=== PATIENT | male | born 1935 | race Caucasian/White ===

== ENCOUNTER 2017-08-15 18:01 | Inpatient (IN) | payer BC ==
[~2017-08-15] VITALS: Ht 185.4 cm; Wt 89.4 kg
[2017-08-15 21:00] VITALS: BP 139/76; PULSE 75; TEMP 36.8; O2SAT 92; Ht 185.4 cm; Wt 89.4 kg
[2017-08-15] MEDS ORDERED: ONDANSETRON INJ 2 MG/ML 2 ML VIAL IV PRN ×2 (21:15→23:30)
[2017-08-15] MEDS ORDERED: MoRPHine SULFATE 2 MG/ML CARP IV PRN (21:15)
[2017-08-15] MEDS ORDERED: POLYETHYLENE (MIRALAX) 17 GM PACK PO PRN ×2 (21:15→23:30)
[2017-08-15] MEDS ORDERED: IBUP-1050 PO (21:19)
[2017-08-15] MEDS ORDERED: GLUCTAB18 PO (21:21)
[2017-08-15] MEDS ORDERED: FERR50TA3 PO (21:22)
[2017-08-15] MEDS ORDERED: CHOL1TAB42 PO (21:23)
[2017-08-15] MEDS ORDERED: PATIENT'S ALLERGY INFO NEEDS ENTERED SCH (21:45)
--- NOTE | 2017-08-15 22:39 | History and Physical ---
History & Physical Date & Time of Service: Aug 15, 2017 at 22:23 Chief Complaint: Acute Renal Failure, Metabolic Acidosis Primary Care Physician: Edward Sheppard M.D. History of Present Illness Source: patient 82 year old male with arthritis and h/o of GI bleed from diverticulosis in 2016 transferred from [facility] where he presented c/o weakness and body aches different from his usual arthritis pain today and found to have significant JEFFREY. He states that he has been feeling unwell since Thursday, and on Thursday, he found himself on the ground (unsure how it happened) at home at 5:30am and was unable to get up without the assistance of his son who found him at 10am. He denies headaches, palpitations, heart racing or dizziness, then or now. Since then, he has been staying with his significant other, who noticed his weakness was worsening and took him to the ED this morning.Patient denies fevers or chills, but states he has been diaphoretic since yesterday. He denies CP, dyspnea, or URTI symptoms. No complaints of nausea, vomiting or abdominal pain, but states significantly diminished appetite, although he has been drinking water. He denies urinary symptoms - although suspicion of BPH given his stream is good when he really has to go and initially. Denies urgency/frequency/ nocturia/hematuria. States he has been peeing in small amounts for a long time. As per nursing staff, Nieto insertion was difficult, which furthers this suspicion. Patient usually has BM daily, but has not in the last 3 days. He otherwise denies lower extremity swelling or rashes. And up until Thursday, he was tolerating diet without nausea or vomiting, ambulating without issues, and voiding and stooling appropriately. ROS unremarkable except as noted above. Past Medical/Surgical History Arthritis Diverticulosis with h/o GI bleed in 2017 B12 deficiency Family History Dad had RCC with kidney failure, was on dialysis until he refused further treatment Social History Smoking Status: Never Smoker Smokeless Tobacco Use: chews tobacco inconsistently Alcohol Use: occasionally Drug Use: none Marital Status: in relationship Housing status: lives alone Multi-Drug Resistant Organisms History of MDRO: No Allergies Coded Allergies: No Known Allergies (Unverified , 08/15/17) Home Medications Scheduled Cholecalciferol (Vitamin D), PO DAILY Ferrous Sulfate (Iron (Ferrous Sulfate)), PO DAILY Glucosamine-Chondroitin (Osteo Bi-Flex Regular Str), PO DAILY Scheduled PRN Ibuprofen (Advil), 200 MG PO for Pain Physical Exam General Appearance: WD/WN, no apparent distress Head: normocephalic, atraumatic Eyes: normal inspection, PERRL, EOMI, sclerae normal ENT: TMs normal, pharynx normal, + pertinent finding (mucous membranes dry) Neck: supple, no adenopathy, no JVD Respiratory/Chest: lungs clear, normal breath sounds, no respiratory distress, no accessory muscle use Cardiovascular: regular rate, rhythm, no edema, no murmur, normal peripheral pulses Abdomen/GI: normal bowel sounds, non tender, soft Genitourinary - Male: normal male genitalia Back: normal inspection, no CVA tenderness Extremities/Musculoskelatal: normal inspection, no calf tenderness, normal capillary refill, no pedal edema 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 no acute osseus injury Labs: CBC WNL, BMP ok except BUN 103, Cr 7.8; LFT ok except AST 179, ALT 83, lactate 2.0, MG 3.5, trop neg, flu neg,, EKG Normal sinus rhythm, 65bpm Left axis deviation Possible anterior infarct, age undetermined QTc 413 Impression Assessment and Plan 82 year old male with arthritis and h/o of GI bleed from diverticulosis transferred from [facility] where he presented c/o weakness and body aches and found to have significant JEFFREY. JEFFREY - possibly pre-renal and/or post renal - Nieto inserted - IVF NSS @ 150cc/hr - Zofran PRN nausea - Morphine PRN pain - Nephrology consulted - NPO after midnight for possible procedure for access for dialysis - Random urine Na and Cr ordered - Kidney U/S ordered - Trend BMP Previous Fall - EKG shows no arrhythmia - ECHO ordered - PT/OT eval Deranged LFTs - patient denies "excessive drinking" - Hep panel - Trend LFTs Constipation - Bowel regimen: scheduled Colace and Senna, Miralax Arthritis - Ibuprofen PRN B12 def - monthly injections, already H/o GI bleed from diverticulosis - Trend CBC VTE PPx - SCDs - Chemical anticoagulation held for possible procedure tomorrow FULL CODE Resident Physician Supervision Note: Pt evaluated independently. I discussed the case with the resident and agree with the findings and plan as documented in the note. Any exceptions or clarifications are listed here: 82 y/o M likely Hx of BPH, GI bleed - presented to [facility] following a fall - c/o a flu-like illness and weakness preceding the fall - ARF diagnosed on labs with a creatinine of 7.0 - pt could not verify previous Hx of CKD, however, considering his K was WNL, there is likely a chronic element. Pt apparently has an aversion to regular MD visits. OE AAO x 3 S1,2 R CTAB NT, ND No CCE P: Aggressive IVF, urine lytes, trend BMP, Nephrology consult requested Pts girlfriend is present on admission and states that he has a "hardened prostate" - this may translate into BPH - a Nieto has been placed and a renal US is pending to evaluate for hydronephrosis - urology should be contacted if confirmed - placed on Flomax Documented By: Vijay Rodriguez Level of Care Telemetry Resuscitation Status FULL RESUSCITATION VTE Prophylaxis VTE Risk Assessment Done? Y/N: Yes Risk Level: Moderate Given or contraindicated: SCD's Resident Tracking Resident Involvement: Resident Care Provided Care Provided: Adult Hospital Medicine
[2017-08-15] MEDS: SODIUM CHLORIDE 0.9% 1000ML 1,000 ML IV SCH (22:40)
[2017-08-15 23:15] VITALS: BP 134/69; PULSE 65; TEMP 37; O2SAT 94
[2017-08-15] MEDS ORDERED: DOCUSATE SODIUM 100 MG CAP PO ONE (23:27)
[2017-08-15] MEDS ORDERED: SENNA 8.6 MG TAB PO ONE (23:27)
[2017-08-15] MEDS ORDERED: ACETAMINOPHEN 325 MG TAB PO PRN (23:30)
[2017-08-15] MEDS ORDERED: MAGNESIUM HYDROXIDE SUSP 30 ML UDC PO PRN (23:30)
[2017-08-15] MEDS ORDERED: ALUMINUM/MAGNESIUM/SIMETH (MAALOX MAX) 30 ML UDC PO PRN (23:30)
[2017-08-15] MEDS ORDERED: NITROGLYCERIN 0.4 MG SL PER TAB CHARGE SL PRN (23:30)
[2017-08-15] MEDS ORDERED: POLYETHYLENE (MIRALAX) 17 GM PACK PO ONE (23:30)
[2017-08-16 00:28] LABS: BASO % 0.1 %; BASO ABS # 0.01 K/uL (0-0.2); HEMATOCRIT 32.9 % (42-52); HEMOGLOBIN 11.5 g/dL (14.0-18.0); IG# 0.04 K/uL (0.00-0.02); LYMPH % 4.5 %; LYMPH ABS # 0.38 K/uL (1.2-3.4); MEAN CELL VOLUME 85.2 fL (80-100); MEAN CORPUSCULAR HEMOGLOBIN 29.8 pg (25-34); MEAN PLATELET VOLUME 9.4 fL (7.4-10.4); MONO % 5.9 %; NEUT ABS # 7.48 K/uL (1.4-6.5); PLATELET COUNT 210 K/uL (130-400); RED CELL DISTRIBUTION WIDTH CV 14.6 % (11.5-14.5); RED CELL DISTRIBUTION WIDTH SD 45.7 fL (36.4-46.3); WHITE BLOOD COUNT 8.41 K/uL (4.8-10.8)
[2017-08-16 00:39] LABS: PTT PATIENT 32.9 SECONDS (21.0-31.0)
[2017-08-16 01:06] LABS: ALBUMIN 2.5 gm/dl (3.4-5.0); CALCIUM 7.3 mg/dl (8.5-10.1); CREATININE 6.99 mg/dl (0.60-1.40); PHOSPHORUS 5.9 mg/dl (2.5-4.9); POTASSIUM 4.3 mmol/L (3.5-5.1); TOTAL PROTEIN 6.2 gm/dl (6.4-8.2)
[2017-08-16 03:47] VITALS: BP 131/72; PULSE 65; TEMP 37; O2SAT 90
[2017-08-16 05:11] LABS: CREATININE RANDOM URINE 80.1 mg/dl
[2017-08-16] MEDS: SODIUM CHLORIDE 0.9% 1000ML 1,000 ML IV SCH (06:51)
[2017-08-16 07:48] VITALS: BP 157/74; PULSE 68; TEMP 36.5; O2SAT 97
[2017-08-16] MEDS: DOCUSATE SODIUM 100 MG CAP PO SCH ×2 (08:00→20:07)
[2017-08-16] MEDS: SENNA 8.6 MG TAB PO SCH (08:00)
--- NOTE | 2017-08-16 08:25 | DIAGNOSTIC IMAGING REPORT ---
(RENAL)RETROPERITON COMP HISTORY: 82 years-old Male JEFFREY acute kidney injury COMPARISON: None available TECHNIQUE: Multiple real-time sonographic images of the kidneys and urinary bladder were obtained assessing grayscale appearance and color flow FINDINGS: The right kidney measures 13.2 x 7.0 x 7.2 cm with a volume of 352 mL. There is an ovoid hypoechoic lesion which is partially exophytic within the lower pole left kidney measuring 4.8 x 4.3 x 4.2 cm suggesting benign cyst without internal vascularity identified. No right-sided renal calculi, hydronephrosis or focal mass lesions identified. Cortical medullary differentiation is preserved. The left kidney measures 13.0 x 6.8 x 5.5 cm with a volume of 256 mL. No left-sided renal calculi, hydronephrosis or focal renal mass lesions. Cortical medullary differentiation is preserved. Urinary bladder is collapsed with Nieto catheter in place. IMPRESSION: 1. 4.8 cm exophytic cyst involves the inferior pole left kidney. Bilateral kidneys are otherwise unremarkable without hydronephrosis or renal calculi. 2. Decompressed urinary bladder with Nieto catheter in place. The above report was generated using voice recognition software. It may contain grammatical, syntax or spelling errors. Electronically signed by: Himanshu Olsen M.D. 08/16/2017 8:23 AM Dictated Date/Time: 08/16/2017 8:20 AM
[2017-08-16 08:33] LABS: BASO % 0.2 %; BASO ABS # 0.02 K/uL (0-0.2); EOS % 0.5 %; EOS ABS # 0.04 K/uL (0-0.5); HEMATOCRIT 32.8 % (42-52); HEMOGLOBIN 11.6 g/dL (14.0-18.0); IG# 0.04 K/uL (0.00-0.02); LYMPH % 6.1 %; LYMPH ABS # 0.51 K/uL (1.2-3.4); MEAN CELL VOLUME 85.6 fL (80-100); MEAN CORPUSCULAR HEMOGLOBIN 30.3 pg (25-34); MEAN CORPUSCULAR HGB CONC 35.4 g/dl (32-36); MEAN PLATELET VOLUME 9.3 fL (7.4-10.4); MONO % 7.6 %; MONO ABS # 0.64 K/uL (0.11-0.59); NEUT % 85.1 %; NEUT ABS # 7.15 K/uL (1.4-6.5); PLATELET COUNT 211 K/uL (130-400); RED CELL DISTRIBUTION WIDTH CV 14.8 % (11.5-14.5); RED CELL DISTRIBUTION WIDTH SD 46.6 fL (36.4-46.3)
[2017-08-16 09:01] LABS: CALCIUM 7.6 mg/dl (8.5-10.1); CREATININE 6.59 mg/dl (0.60-1.40); POTASSIUM 4.5 mmol/L (3.5-5.1)
[2017-08-16 09:40] LABS: HEP C IGG 13 YRS+OLDER_RFLX NEG (NEG)
--- NOTE | 2017-08-16 10:37 | Family Medicine Progress Note ---
Progress Note Date of Service Aug 16, 2017. Subjective Pt evaluation today including: conversation w/ patient, physical exam, chart review, lab review, review of studies Pain: No pain reported this morning Voiding: marin catheter in place Patient states that he is still fatigued and thirsty. He states he has been having poor PO intake since Thursday with minimal drinking and eating along with a fall where he was down for a prolonged period of time. His urine has also been darker as of late. He also has not had a bowel movement in quite a few days. He denies any fevers, chills, abdominal pain, back pain, dysuria, flank pain, or any other acute complaints. Constitutional: + fatigue, No fever, No chills, No sweats Respiratory: No cough, No sputum, No wheezing, No shortness of breath Cardiovascular: No chest pain, No palpitations Abdomen: + constipation, No pain, No nausea, No vomiting, No diarrhea Male : + slowing stream, No dysuria, No urinary frequency, No incontinence , No hematuria Medications Current Inpatient Medications Medications (Trade) Dose Ordered Sig/Alayna Route Start Time Stop Time Status Last Admin Dose Admin Acetaminophen (Tylenol Tab) 650 mg Q4H PRN PO 08/15/17 21:15 09/14/17 21:14 Ondansetron HCl (Zofran Inj) 4 mg Q6H PRN IV 08/15/17 21:15 09/14/17 21:14 Morphine Sulfate (MoRPHine SULFATE INJ) 2 mg Q30M PRN IV 08/15/17 21:15 08/29/17 21:14 Polyethylene (Miralax Powder Packet) 17 gm DAILY PRN PO 08/15/17 21:15 09/14/17 21:14 Al Hydrox/Mg Hydrox/Simethicone (Maalox Max Susp) 15 ml Q4H PRN PO 08/15/17 23:30 09/14/17 23:29 Magnesium Hydroxide (Milk Of Magnesia Susp) 30 ml Q12H PRN PO 08/15/17 23:30 09/14/17 23:29 Ondansetron HCl (Zofran Inj) 4 mg Q6H PRN IV 08/15/17 23:30 09/14/17 23:29 Nitroglycerin (Nitrostat Tab) 0.4 mg UD PRN SL 08/15/17 23:30 09/14/17 23:29 Docusate Sodium (coLACE CAP) 100 mg BID PO 08/16/17 09:00 09/15/17 08:59 08/16/17 08:00 100 MG Senna (Senokot Tab) 8.6 mg QAM PO 08/16/17 09:00 09/15/17 08:59 08/16/17 08:00 8.6 MG Tamsulosin HCl (Flomax Cap) 0.4 mg HS PO 08/16/17 21:00 09/15/17 20:59 Sodium Bicarbonate 75 meq/Sodium Chloride 1,075 ml @ 150 mls/hr Q7H10M IV 08/16/17 12:00 09/15/17 11:59 08/16/17 12:21 150 MLS/HR Objective Vital Signs Date Time Temp Pulse Resp B/P (MAP) Pulse Ox O2 Delivery O2 Flow Rate FiO2 08/16/17 12:00 Room Air 08/16/17 11:57 36.5 69 19 133/67 (89) 96 Room Air 08/16/17 08:00 Room Air 08/16/17 07:48 36.5 68 18 157/74 (101) 97 Room Air 08/16/17 04:00 Room Air 08/16/17 03:47 37.0 65 18 131/72 (91) 90 Room Air 08/16/17 00:00 Room Air 08/15/17 23:15 37.0 65 20 134/69 (90) 94 Room Air 08/15/17 21:00 36.8 75 18 139/76 92 Room Air Physical Exam General Appearance: WD/WN, no apparent distress Eyes: normal inspection, sclerae normal Neck: supple, no carotid bruits Respiratory/Chest: chest non-tender, lungs clear, normal breath sounds Cardiovascular: regular rate, rhythm, no edema, no gallop Abdomen: normal bowel sounds, non tender, soft Extremities: no pedal edema, no calf tenderness Neurologic/Psychiatric: alert, normal mood/affect, oriented x 3 Laboratory Results Results Past 24 Hours Test 08/15/17 23:55 08/16/17 04:42 08/16/17 05:34 08/16/17 05:49 Range/Units White Blood Count 8.41 8.40 4.8-10.8 K/uL Red Blood Count 3.86 3.83 4.7-6.1 M/uL Hemoglobin 11.5 11.6 14.0-18.0 g/dL Hematocrit 32.9 32.8 42-52 % Mean Corpuscular Volume 85.2 85.6 80-100 fL Mean Corpuscular Hemoglobin 29.8 30.3 25-34 pg Mean Corpuscular Hemoglobin Concent 35.0 35.4 32-36 g/dl Platelet Count 210 211 130-400 K/uL Mean Platelet Volume 9.4 9.3 7.4-10.4 fL Neutrophils (%) (Auto) 89.0 85.1 % Lymphocytes (%) (Auto) 4.5 6.1 % Monocytes (%) (Auto) 5.9 7.6 % Eosinophils (%) (Auto) 0.0 0.5 % Basophils (%) (Auto) 0.1 0.2 % Neutrophils # (Auto) 7.48 7.15 1.4-6.5 K/uL Lymphocytes # (Auto) 0.38 0.51 1.2-3.4 K/uL Monocytes # (Auto) 0.50 0.64 0.11-0.59 K/uL Eosinophils # (Auto) 0.00 0.04 0-0.5 K/uL Basophils # (Auto) 0.01 0.02 0-0.2 K/uL RDW Standard Deviation 45.7 46.6 36.4-46.3 fL RDW Coefficient of Variation 14.6 14.8 11.5-14.5 % Immature Granulocyte % (Auto) 0.5 0.5 % Immature Granulocyte # (Auto) 0.04 0.04 0.00-0.02 K/uL Prothrombin Time 10.7 9.0-12.0 SECONDS Prothromb Time International Ratio 1.0 0.9-1.1 Activated Partial Thromboplast Time 32.9 21.0-31.0 SECONDS Partial Thromboplastin Ratio 1.3 Sodium Level 130 133 136-145 mmol/L Potassium Level 4.3 4.5 3.5-5.1 mmol/L Chloride Level 101 103 98-107 mmol/L Carbon Dioxide Level 17 16 21-32 mmol/L Anion Gap 12.0 14.0 3-11 mmol/L Blood Urea Nitrogen 103 104 7-18 mg/dl Creatinine 6.99 6.59 0.60-1.40 mg/dl Est Creatinine Clear Calc Drug Dose 9.5 10.1 ml/min Estimated GFR () 7.8 8.4 Estimated GFR (Non- 6.7 7.2 BUN/Creatinine Ratio 14.6 15.8 10-20 Random Glucose 111 94 70-99 mg/dl Calcium Level 7.3 7.6 8.5-10.1 mg/dl Phosphorus Level 5.9 2.5-4.9 mg/dl Magnesium Level 3.0 1.8-2.4 mg/dl Total Bilirubin 0.5 0.5 0.2-1 mg/dl Aspartate Amino Transf (AST/SGOT) 113 105 15-37 U/L Alanine Aminotransferase (ALT/SGPT) 61 59 12-78 U/L Alkaline Phosphatase 48 45 45-117 U/L Total Protein 6.2 6.1 6.4-8.2 gm/dl Albumin 2.5 2.5 3.4-5.0 gm/dl Globulin 3.7 2.5-4.0 gm/dl Albumin/Globulin Ratio 0.7 0.9-2 Urine Random Creatinine 80.1 mg/dl Urine Random Sodium 45 mEq/L Hepatitis B Surface Antigen NEG NEG Hepatitis B Surface Antibody NEG Hepatitis C Antibody NEG NEG Direct Bilirubin 0.1 0-0.2 mg/dl Total Creatine Kinase 2973 39-308 U/L Test 08/16/17 13:15 08/16/17 14:00 Range/Units Urine Color YELLOW Urine Appearance CLOUDY CLEAR Urine pH 5.0 4.5-7.5 Urine Specific [place] 1.020 1.000-1.030 Urine Protein TRACE NEG Urine Glucose (UA) NEG NEG Urine Ketones NEG NEG Urine Occult Blood 3+ NEG Urine Nitrite NEG NEG Urine Bilirubin NEG NEG Urine Urobilinogen NEG NEG Urine Leukocyte Esterase MODERATE NEG Urine WBC (Auto) 10-30 0-5 /hpf Urine RBC (Auto) >30 0-4 /hpf Urine Hyaline Casts (Auto) 1-5 0-5 /lpf Urine Epithelial Cells (Auto) >30 0-5 /lpf Urine Bacteria (Auto) NEG NEG Urine Crystals UNIDENTIFIED NONE PRSENT Urine Yeast (Auto) NONE PRSENT Microbiology Results 08/16/17 Urine Culture, Received Pending Assessment and Plan Patient is an 82 year old male with a past medical history of B12 deficiency, GI bleed 2/2 Diverticulosis, and Arthritis that presented from [facility] with Acute Renal Failure Acute Renal Failure 2/2 possible Rhabdomyolysis - Experienced multiple falls earlier in the week and reported being down for prolonged duration of time - Renal US: 4.8cm exophytic cyst involving the inferior pole of the left kidney. Otherwise unremarkable without hydronephrosis or renal calculi - 1/2 NS + Sodium Bicarb @ 150mls/hr - Nephrology Consult - [facility] Labs: Venous pH - 7.21, AST-179, ALT-83, CK - 6893, Blood Cultures - Trend CK and BMP q6h - Random Urine Na 45, Cr 80.1 --> FENa 3% --> Not Pre-renal - UA pending (UA appears ordered although results not documented from [facility]) - Monitor on telemetry - Marin Catheter - Continue Flomax - Hold home NSAIDS due to renal failure Metabolic Acidosis secondary to Rhabdomyolysis above - AGAP 14 - Bicarb added to IV Fluids - Continue to monitor BMP regularly Atrial Fibrillation - 40 second run of Atrial fibrillation while on Telemetry - Previous history of GI bleed so no anticoagulation at this time - Continue to monitor on tele - Echo pending BPH - History of decreasing urinary stream and difficulty placing marin - Continue Flomax Arthritis - Hold home NSAIDs DVT - SCDs Code Status - Full Resuscitation Resident Tracking Resident Involvement: Resident Care Provided Care Provided: Adult Hospital Medicine Reviewed: Pt Seen/Exam by Me History Resident Physician Supervision Note: I interviewed and examined the patient. Discussed with Dr. Gayle and agree with findings and plan as documented in the note. Any exceptions or clarifications are listed here: Patient is fatigued, denies pain, denies chest pain or shortness of breath. Creatinine is slightly improved today from yesterday, but bicarbonate has continued to drop down to 14. CPK has decreased from 6893 yesterday down to 2000 today. AST also decreasing. Vitals reviewed NAD, alert awake oriented 3 Regular rate and rhythm, no murmurs gallops rubs Lungs clear to auscultation bilaterally, no wheezes crackles or rhonchi Abdomen positive bowel sounds soft nontender nondistended Extremities no edema, 2 posterior cells pedis pulses Skin no rashes This patient is an 82-year-old male who is fairly healthy, who fell down and was on the ground for 4-5 hours, with rhabdomyolysis and acute kidney injury. No indication for urgent dialysis at this time. Started on half-normal saline with bicarbonate and will continue to trend CPKs and PRP. -Appreciate nephrology consultation -Trend LFTs as well which is likely related to rhabdomyolysis -Short burst of A. fib on telemetry-monitor for now, no anticoagulation at this time indicated plus with history of recent GI bleed -Okay to give heparin subcutaneous for DVT prophylaxis Documented By: Kacey Stein
[2017-08-16 11:34] LABS: ALBUMIN 2.5 gm/dl (3.4-5.0); TOTAL PROTEIN 6.1 gm/dl (6.4-8.2)
[2017-08-16 11:57] VITALS: BP 133/67; PULSE 69; TEMP 36.5; O2SAT 96
[2017-08-16] MEDS: SODIUM BICARBONATE 8.4% INJ 75 MEQ in SODIUM CHLORIDE 0.45% 1000ML 1,000 ML IV SCH ×2 (12:21→20:06)
--- NOTE | 2017-08-16 12:44 | Nephrology Consultation ---
Nephrology Consultation Date & Providers Date of Consultation: Aug 16, 2017. Primary Care Provider: Edward Sheppard M.D. Referring Provider: Reason for Consultation Evaluation of JEFFREY History of Present Illness Mr. Hayward was seen & examined in the PCU this morning at the request of Dr. Stein. Medical records in the hospital EMR were reviewed and are summarized as follows: Mr. Hayward has enjoyed good health. His medical history is significant for osteoarthritis and iron deficiency anemia. Mr. Hayward resides in [place], [place]. His PCP is Dr. Edward Sheppard. The patient states that his last OV was approximately one year ago and "everything was OK". Mr. Hayward reports being weak with poor oral intake over the last several days. He fell several times. Yesterday morning he fell at 5 am and was unable to get to a telephone. He was found lying on the floor by his son at 10 am. He was taken to [facility] for evaluation. Head CT without contrast was negative for intracranial bleed or mass effect. BUN/CR were 103/7.8. Bladder US revealed 253 cc PVR. CPK was 6893. Patient was diagnosed w/ JEFFREY related to rhabdomyolysis. He was transferred via ambulance to [facility] for Nephrology evaluation. Mr. Hayward denies hypercholesterolemia or the use of statin therapy. He has not been using NSAIDS in excess. He takes Osteo-biflex for treatment of his OA. He is on no other OTC medication or herbal supplement. Mr. Hayward denies recent ill contact, fever, seizure activity, angina, vomiting/diarrhea or muscle pain. His only complaint is that of muscle weakness over the last several days. Past Medical/Surgical History Medical: # Iron deficiency anemia # B12 deficiency # Osteoarthritis Allergies Coded Allergies: No Known Allergies (Unverified , 08/15/17) Inpatient Medications Current Inpatient Medications Medications (Trade) Dose Ordered Sig/Alayna Route Start Time Stop Time Status Last Admin Dose Admin Acetaminophen (Tylenol Tab) 650 mg Q4H PRN PO 08/15/17 21:15 09/14/17 21:14 Ondansetron HCl (Zofran Inj) 4 mg Q6H PRN IV 08/15/17 21:15 09/14/17 21:14 Morphine Sulfate (MoRPHine SULFATE INJ) 2 mg Q30M PRN IV 08/15/17 21:15 08/29/17 21:14 Polyethylene (Miralax Powder Packet) 17 gm DAILY PRN PO 08/15/17 21:15 09/14/17 21:14 Al Hydrox/Mg Hydrox/Simethicone (Maalox Max Susp) 15 ml Q4H PRN PO 08/15/17 23:30 09/14/17 23:29 Magnesium Hydroxide (Milk Of Magnesia Susp) 30 ml Q12H PRN PO 08/15/17 23:30 09/14/17 23:29 Ondansetron HCl (Zofran Inj) 4 mg Q6H PRN IV 08/15/17 23:30 09/14/17 23:29 Nitroglycerin (Nitrostat Tab) 0.4 mg UD PRN SL 08/15/17 23:30 09/14/17 23:29 Docusate Sodium (coLACE CAP) 100 mg BID PO 08/16/17 09:00 09/15/17 08:59 08/16/17 08:00 100 MG Senna (Senokot Tab) 8.6 mg QAM PO 08/16/17 09:00 09/15/17 08:59 08/16/17 08:00 8.6 MG Tamsulosin HCl (Flomax Cap) 0.4 mg HS PO 08/16/17 21:00 09/15/17 20:59 Sodium Bicarbonate 75 meq/Sodium Chloride 1,075 ml @ 150 mls/hr Q7H10M IV 08/16/17 12:00 09/15/17 11:59 Family History Negative for CKD/ESRD Social History Smoking Status: Never Smoker Smokeless Tobacco Use: chews tobacco inconsistently Alcohol Use: occasionally Drug Use: none Marital Status: in relationship Housing Status: lives alone Retired. Never a smoker Review of Systems Constitutional: No fever Respiratory: No shortness of breath Cardiovascular: No chest pain Abdomen: No vomiting, No diarrhea Integumentary: No rash, No itch A complete review of systems was performed. Pertinent positives are noted above. All other systems are negative. Physical Exam Date Time Temp Pulse Resp B/P (MAP) Pulse Ox O2 Delivery O2 Flow Rate FiO2 08/16/17 08:00 Room Air 08/16/17 07:48 36.5 68 18 157/74 (101) 97 Room Air 08/16/17 04:00 Room Air 08/16/17 03:47 37.0 65 18 131/72 (91) 90 Room Air 08/16/17 00:00 Room Air 08/15/17 23:15 37.0 65 20 134/69 (90) 94 Room Air 08/15/17 21:00 36.8 75 18 139/76 92 Room Air General Appearance: no apparent distress Head: normocephalic, atraumatic Eyes: PERRL, EOMI ENT: + pertinent finding (dry mucous membranes) Neck: no adenopathy Respiratory/Chest: lungs clear, no respiratory distress Cardiovascular: regular rate, rhythm, no murmur Abdomen/GI: normal bowel sounds, non tender, soft Genitourinary - Male: + pertinent finding (marin catheter in place draining clear yellow urine) Extremities/Musculoskelatal: no calf tenderness, no pedal edema Neurologic/Psych: alert, oriented x 3 Lymphatic: no adenopathy Laboratory Results Last 24 Hours Test 08/15/17 23:55 08/16/17 04:42 08/16/17 05:34 08/16/17 05:49 White Blood Count 8.41 K/uL 8.40 K/uL Red Blood Count 3.86 M/uL 3.83 M/uL Hemoglobin 11.5 g/dL 11.6 g/dL Hematocrit 32.9 % 32.8 % Mean Corpuscular Volume 85.2 fL 85.6 fL Mean Corpuscular Hemoglobin 29.8 pg 30.3 pg Mean Corpuscular Hemoglobin Concent 35.0 g/dl 35.4 g/dl Platelet Count 210 K/uL 211 K/uL Mean Platelet Volume 9.4 fL 9.3 fL Neutrophils (%) (Auto) 89.0 % 85.1 % Lymphocytes (%) (Auto) 4.5 % 6.1 % Monocytes (%) (Auto) 5.9 % 7.6 % Eosinophils (%) (Auto) 0.0 % 0.5 % Basophils (%) (Auto) 0.1 % 0.2 % Neutrophils # (Auto) 7.48 K/uL 7.15 K/uL Lymphocytes # (Auto) 0.38 K/uL 0.51 K/uL Monocytes # (Auto) 0.50 K/uL 0.64 K/uL Eosinophils # (Auto) 0.00 K/uL 0.04 K/uL Basophils # (Auto) 0.01 K/uL 0.02 K/uL RDW Standard Deviation 45.7 fL 46.6 fL RDW Coefficient of Variation 14.6 % 14.8 % Immature Granulocyte % (Auto) 0.5 % 0.5 % Immature Granulocyte # (Auto) 0.04 K/uL 0.04 K/uL Prothrombin Time 10.7 SECONDS Prothromb Time International Ratio 1.0 Activated Partial Thromboplast Time 32.9 SECONDS Partial Thromboplastin Ratio 1.3 Sodium Level 130 mmol/L 133 mmol/L Potassium Level 4.3 mmol/L 4.5 mmol/L Chloride Level 101 mmol/L 103 mmol/L Carbon Dioxide Level 17 mmol/L 16 mmol/L Anion Gap 12.0 mmol/L 14.0 mmol/L Blood Urea Nitrogen 103 mg/dl 104 mg/dl Creatinine 6.99 mg/dl 6.59 mg/dl Est Creatinine Clear Calc Drug Dose 9.5 ml/min 10.1 ml/min Estimated GFR () 7.8 8.4 Estimated GFR (Non- 6.7 7.2 BUN/Creatinine Ratio 14.6 15.8 Random Glucose 111 mg/dl 94 mg/dl Calcium Level 7.3 mg/dl 7.6 mg/dl Phosphorus Level 5.9 mg/dl Magnesium Level 3.0 mg/dl Total Bilirubin 0.5 mg/dl 0.5 mg/dl Aspartate Amino Transf (AST/SGOT) 113 U/L 105 U/L Alanine Aminotransferase (ALT/SGPT) 61 U/L 59 U/L Alkaline Phosphatase 48 U/L 45 U/L Total Protein 6.2 gm/dl 6.1 gm/dl Albumin 2.5 gm/dl 2.5 gm/dl Globulin 3.7 gm/dl Albumin/Globulin Ratio 0.7 Urine Random Creatinine 80.1 mg/dl Urine Random Sodium 45 mEq/L Hepatitis B Surface Antigen NEG Hepatitis B Surface Antibody NEG Hepatitis C Antibody NEG Direct Bilirubin 0.1 mg/dl Total Creatine Kinase 2973 U/L Test 08/16/17 08:35 Impression (1) ARF (acute renal failure) (2) Rhabdomyolysis (3) Metabolic acidosis (4) Dehydration (5) BPH (benign prostatic hyperplasia) (6) Anemia (7) Osteoarthritis Recommendations ACUTE KIDNEY INJURY: -- Nonoliguric JEFFREY due to dehydration and rhabdomyolysis. Although azotemic, volume status & electrolyte balance are acceptable. No acute indication for HD at this time. -- Change IVF to 0.45 NS w/ 75mEq NaHCO3 at 150 cc/hr -- Monitor UO, PRP -- Renal US films reviewed today: 13 cm kidneys, 4.5 cm simple cyst lower pole of L kidney -- Awaiting urinalysis and urine microscopy results -- waitstaff captain reports difficulty placing marin catheter. Will check PSA level. Consider consultation w/ Urology METABOLIC ACIDOSIS: -- High AG acidosis (AG 14) due to JEFFREY. Will provide bicarbonate HYPOCALCEMIA: -- Patient is hypoalbuminemic. Corrected calcium is 9.2. Will monitor while on NaHCO3 gtt RHABDOMYOLYSIS: -- Monitor serial CPK OTHER: -- Patient can provide only limited medical history. Cause of weakness and recent falls is undefined. Will request last OV note from PCP to better define medical history
[2017-08-16 15:15] VITALS: BP 116/63; PULSE 67; TEMP 36.5; O2SAT 93
[2017-08-16 16:13] LABS: CALCIUM 7.5 mg/dl (8.5-10.1); CREATININE 6.17 mg/dl (0.60-1.40); POTASSIUM 4.2 mmol/L (3.5-5.1)
--- NOTE | 2017-08-16 18:32 | ECHOCARDIOGRAM REPORT ---
*NOTICE TO RECEIVING [employer] This information is strictly Confidential and protected under [place] law. [place] law prohibits you from making any further disclosure of this information unless further disclosure is expressly permitted by the written consent of the person to whom it pertains or is authorized by law. A general authorization for the release of medical or other information is not sufficient for this purpose. Hospital accepts no responsibility if the information is made available to any other person, INCLUDING THE PATIENT. Interpretation Summary * Name: RASHAUN MERINO Study Date: 08/16/2017 10:46 AM BP: 131/72 mmHg * Patient Location: C.2E\S\E205\S\1 HR: 67 * : 1935 (M/d/yyyy) Gender: Male Height: 73 in * Age: 82 yrs Ethnicity: [place] Weight: 197 lb * Ordering Physician: Natalia Mendez. * Referring Physician: No Doctor, Assigned * Performed By: Deepika Zarate RCS * * Reason For Study: FALL * BSA: 2.1 m2 * -- Conclusions -- * 1. Normal left ventricular size and systolic function. EF 55-60%. No definite regional wall motion abnormalities, however apex is not well visualized. No left ventricular hypertrophy. Type 1 diastolic dysfunction. * 2. Mildly dilated right ventricle with normal systolic function. * 3. Minimally dilated ascending aorta. * 4. Sclerotic aortic valve without significant stenosis. Trace aortic regurgitation. * 5. Mildly elevated right ventricular systolic pressure (45-50mmHg); IVC not visualized to estimate right atrial pressure. * 6. No prior study available for comparison. Procedure Details * A complete two-dimensional transthoracic echocardiogram was performed (2D, M-mode, Doppler and color flow Doppler). Left Ventricle * Normal left ventricular size and systolic function. EF 55-60%. No definite regional wall motion abnormalities, however apex is not well visualized. No left ventricular hypertrophy. Type 1 diastolic dysfunction. * A false chord is noted (normal variant). Right Ventricle * Mildly dilated right ventricle with normal systolic function. * The right ventricular systolic function is normal as assessed by tricuspid annular plane systolic excursion (TAPSE) (normal >1.5 cm). Atria * The left atrial size is normal. * Right atrial size is normal. * There is no evidence of atrial septal defect, but resolution does not allow assessment for a patent foramen ovale. Mitral Valve * There is mild mitral annular calcification. * There is no mitral valve stenosis. * There is trace mitral regurgitation. Tricuspid Valve * The tricuspid valve is not well visualized, but is grossly normal. * There is no tricuspid stenosis. * There is mild tricuspid regurgitation. Aortic Valve * The aortic valve is trileaflet. * Sclerotic aortic valve without significant stenosis. * Trace aortic regurgitation. Pulmonic Valve * The pulmonary valve is inadequately visualized, but the Doppler data is adequate for interpretation. * There is no pulmonic valvular stenosis. * Trace pulmonic valvular regurgitation. Great Vessels * Borderline aortic root dilatation. * Minimally dilated ascending aorta. Pericardium/Pleural * There is no pericardial effusion. Great Vessels * IVC not visualized. MMode 2D Measurements and Calculations IVSd 1.1 cm IVSs 1.7 cm LVIDd 4.9 cm LVIDs 3.1 cm LVPWd 1.0 cm LVPWs 1.5 cm IVS/LVPW 1.1 FS 37.3 % EDV(Teich) 111.6 ml ESV(Teich) 36.7 ml EF(Teich) 67.1 % EDV(cubed) 116.0 ml ESV(cubed) 28.6 ml EF(cubed) 75.3 % % IVS thick 52.2 % % LVPW thick 45.8 % LV mass(C)d 193.4 grams LV mass(C)dI 90.5 grams/m\S\2 LV mass(C)s 182.2 grams LV mass(C)sI 85.2 grams/m\S\2 SV(Teich) 74.9 ml SI(Teich) 35.0 ml/m\S\2 SV(cubed) 87.4 ml SI(cubed) 40.9 ml/m\S\2 Ao root diam 4.2 cm Ao root area 14.1 cm\S\2 ACS 1.8 cm asc Aorta Diam 3.9 cm LVOT diam 2.2 cm LVOT area 3.9 cm\S\2 Doppler Measurements and Calculations MV E max mala 97.6 cm/sec MV A max mala 105.2 cm/sec MV E/A 0.93 MV P1/2t max mala 109.6 cm/sec MV P1/2t 99.8 msec MVA(P1/2t) 2.2 cm\S\2 MV dec slope 321.7 cm/sec\S\2 MV dec time 0.25 sec Ao V2 max 158.8 cm/sec Ao max PG 10.1 mmHg Ao max PG (full) 6.6 mmHg JESUS(V,A) 2.3 cm\S\2 JESUS(V,D) 2.3 cm\S\2 AI max mala 271.1 cm/sec AI max PG 29.4 mmHg AI dec slope 172.1 cm/sec\S\2 AI P1/2t 461.4 msec LV V1 max PG 3.5 mmHg LV V1 max 93.5 cm/sec MR max mala 509.0 cm/sec MR max PG 103.6 mmHg PA V2 max 107.8 cm/sec PA max PG 4.7 mmHg TR max mala 323.6 cm/sec
[2017-08-16 19:09] VITALS: BP 150/76; PULSE 68; TEMP 36.7; O2SAT 95
[2017-08-16] MEDS: TAMSULOSIN HCL 0.4 MG CAP PO SCH (20:07)
[2017-08-16 20:52] LABS: CALCIUM 7.4 mg/dl (8.5-10.1); POTASSIUM 3.8 mmol/L (3.5-5.1)
[2017-08-16 20:53] LABS: CREATININE 6.3 mg/dl (0.60-1.40)
[2017-08-16] MEDS: HEPARIN SOD 5000 UNIT/0.5 ML CARP SQ SCH (21:47)
[2017-08-17] VITALS (26 sets, daily range): BP systolic 85–119; BP diastolic 46–75; PULSE 72–112; TEMP 36.6–37.5; O2SAT 92–100
[2017-08-17] MEDS ORDERED: METOPROLOL TARTRATE 1 MG/ML VIAL IV STA (02:01)
--- NOTE | 2017-08-17 02:03 | Progress Note ---
Progress Note Date of Service Aug 17, 2017. Progress Note a fibb rvr sustained, asymp trop, bmp, mag, tsh, ekg trial lopressor for rate control, diltiazem if does not respond will defer anticoag for now as patient has recent history of GI bld Rocephin x1 for abn UA with Ucx pending in light of recurring a fibb and shaquille as has not received abx as of yet, defer to day team to cont
[2017-08-17] MEDS ORDERED: METOPROLOL TARTRATE 1 MG/ML VIAL ONE (02:12)
[2017-08-17] MEDS ORDERED: CEFTRIAXONE SOD INJ 1 GM in DEXTROSE 5% ADD-VANTAGE 50ML 50 ML IV ONE (02:30)
[2017-08-17 02:53] LABS: BLOOD UREA NITROGEN 95 mg/dl (7-18); CALCIUM 7.6 mg/dl (8.5-10.1); CARBON DIOXIDE 19 mmol/L (21-32); CREATININE 5.95 mg/dl (0.60-1.40); GLUCOSE 109 mg/dl (70-99); POTASSIUM 3.7 mmol/L (3.5-5.1); SODIUM 135 mmol/L (136-145)
[2017-08-17] MEDS: SODIUM BICARBONATE 8.4% INJ 75 MEQ in SODIUM CHLORIDE 0.45% 1000ML 1,000 ML IV SCH ×3 (03:38→20:55)
[2017-08-17] MEDS ORDERED: DILTIAZEM BOLUS / DRIP IV STA (03:41)
[2017-08-17] MEDS ORDERED: DILTIAZEM HCL INJ 125 MG in DEXTROSE 5% 100ML IV PRN (04:15)
--- NOTE | 2017-08-17 07:22 | Family Medicine Progress Note ---
Progress Note Date of Service Aug 17, 2017. Subjective Pt evaluation today including: conversation w/ patient, conversation w/ family , physical exam, chart review, lab review, review of studies, conversation w/ dairy feed sales consultant, review of inpatient medication list Patient states that he continues to feel lousy and weak. He denies any acute pain symptoms, and has not ambulated significantly, just to sit out of bed. Says he feels fatigued. He otherwise denies fevers/chills, headaches, CP, palpitations, dyspnea, abdominal pain, flank pain, lower extremity swelling or rashes. He is tolerating diet without nausea or vomiting. Nieto is in place and he is voiding without issue. ROS is unremarkable except as noted above. Objective Vital Signs Date Time Temp Pulse Resp B/P (MAP) Pulse Ox O2 Delivery O2 Flow Rate FiO2 08/17/17 04:00 Room Air 08/17/17 03:38 106 08/17/17 03:28 36.6 106 17 99/64 (76) 92 Room Air 08/17/17 03:04 93 21 87/66 (73) 08/17/17 03:02 88 15 87/67 (74) 08/17/17 03:00 95 19 85/61 (69) 08/17/17 02:59 97 21 90/59 (69) 08/17/17 02:57 98 19 101/66 (78) 08/17/17 02:55 104 21 105/66 (79) 08/17/17 02:53 112 19 101/59 (73) 08/17/17 02:51 111 21 104/59 (74) 08/17/17 02:49 102 18 107/57 (74) 08/17/17 02:47 97 19 111/63 (79) 08/17/17 02:45 93 18 98/60 (73) 08/17/17 02:43 106 19 92/60 (71) 08/17/17 02:41 103 18 100/58 (72) 08/17/17 02:39 95 18 91/61 (71) 08/17/17 02:38 109 19 91/60 (70) 08/17/17 02:37 99 19 96/62 (73) 08/17/17 02:35 109 22 93/61 (72) 08/17/17 02:34 98 19 96/61 (73) 08/17/17 02:30 104 27 08/17/17 02:12 106 98/62 08/17/17 00:00 36.8 72 17 113/63 (80) 92 08/17/17 00:00 Room Air 08/16/17 20:00 Room Air 08/16/17 19:09 36.7 68 20 150/76 (100) 95 Room Air 08/16/17 16:00 Room Air 08/16/17 15:15 36.5 67 24 116/63 (80) 93 Room Air 08/16/17 12:00 Room Air 08/16/17 11:57 36.5 69 19 133/67 (89) 96 Room Air 08/16/17 08:00 Room Air 08/16/17 07:48 36.5 68 18 157/74 (101) 97 Room Air Physical Exam General Appearance: WD/WN, no apparent distress Eyes: normal inspection ENT: hearing grossly normal, pharynx normal Neck: supple Respiratory/Chest: lungs clear, normal breath sounds, no respiratory distress, no accessory muscle use Cardiovascular: no murmur, + irregularly irregular Abdomen: normal bowel sounds, non tender, soft Extremities: non-tender, no pedal edema, no calf tenderness Neurologic/Psychiatric: no motor/sensory deficits (mild weakness of hip flexors bilaterally, 4/5), alert, oriented x 3, + depressed affect Skin: normal color, warm/dry, no rash Laboratory Results Results Past 24 Hours Test 08/16/17 13:15 08/16/17 15:19 08/16/17 20:07 08/16/17 23:45 Range/Units Urine Color YELLOW Urine Appearance CLOUDY CLEAR Urine pH 5.0 4.5-7.5 Urine Specific [place] 1.020 1.000-1.030 Urine Protein TRACE NEG Urine Glucose (UA) NEG NEG Urine Ketones NEG NEG Urine Occult Blood 3+ NEG Urine Nitrite NEG NEG Urine Bilirubin NEG NEG Urine Urobilinogen NEG NEG Urine Leukocyte Esterase MODERATE NEG Urine WBC (Auto) 10-30 0-5 /hpf Urine RBC (Auto) >30 0-4 /hpf Urine Hyaline Casts (Auto) 1-5 0-5 /lpf Urine Epithelial Cells (Auto) >30 0-5 /lpf Urine Bacteria (Auto) NEG NEG Urine Crystals UNIDENTIFIED NONE PRSENT Urine Yeast (Auto) NONE PRSENT Sodium Level 136 134 136-145 mmol/L Potassium Level 4.2 3.8 3.5-5.1 mmol/L Chloride Level 105 105 98-107 mmol/L Carbon Dioxide Level 14 20 21-32 mmol/L Anion Gap 17.0 9.0 3-11 mmol/L Blood Urea Nitrogen 101 102 7-18 mg/dl Creatinine 6.17 6.30 0.60-1.40 mg/dl Est Creatinine Clear Calc Drug Dose 10.8 10.6 ml/min Estimated GFR () 9.1 8.9 Estimated GFR (Non- 7.8 7.6 BUN/Creatinine Ratio 16.3 16.1 10-20 Random Glucose 126 125 70-99 mg/dl Calcium Level 7.5 7.4 8.5-10.1 mg/dl Total Creatine Kinase 1729 1464 39-308 U/L Test 08/17/17 02:04 08/17/17 07:44 08/17/17 10:54 Range/Units Sodium Level 135 136 136-145 mmol/L Potassium Level 3.7 3.6 3.5-5.1 mmol/L Chloride Level 104 104 98-107 mmol/L Carbon Dioxide Level 19 19 21-32 mmol/L Anion Gap 12.0 13.0 3-11 mmol/L Blood Urea Nitrogen 95 84 7-18 mg/dl Creatinine 5.95 4.88 0.60-1.40 mg/dl Est Creatinine Clear Calc Drug Dose 11.2 13.6 ml/min Estimated GFR () 9.5 12.1 Estimated GFR (Non- 8.2 10.4 BUN/Creatinine Ratio 16.0 17.4 10-20 Random Glucose 109 106 70-99 mg/dl Calcium Level 7.6 7.4 8.5-10.1 mg/dl Troponin I < 0.015 0-0.045 ng/ml White Blood Count 6.17 4.8-10.8 K/uL Red Blood Count 3.87 4.7-6.1 M/uL Hemoglobin 11.6 14.0-18.0 g/dL Hematocrit 32.7 42-52 % Mean Corpuscular Volume 84.5 80-100 fL Mean Corpuscular Hemoglobin 30.0 25-34 pg Mean Corpuscular Hemoglobin Concent 35.5 32-36 g/dl Platelet Count 225 130-400 K/uL Mean Platelet Volume 9.0 7.4-10.4 fL Neutrophils (%) (Auto) 82.0 % Lymphocytes (%) (Auto) 8.4 % Monocytes (%) (Auto) 7.6 % Eosinophils (%) (Auto) 1.3 % Basophils (%) (Auto) 0.2 % Neutrophils # (Auto) 5.06 1.4-6.5 K/uL Lymphocytes # (Auto) 0.52 1.2-3.4 K/uL Monocytes # (Auto) 0.47 0.11-0.59 K/uL Eosinophils # (Auto) 0.08 0-0.5 K/uL Basophils # (Auto) 0.01 0-0.2 K/uL RDW Standard Deviation 46.0 36.4-46.3 fL RDW Coefficient of Variation 14.7 11.5-14.5 % Immature Granulocyte % (Auto) 0.5 % Immature Granulocyte # (Auto) 0.03 0.00-0.02 K/uL Ionized Calcium 0.97 1.12-1.32 mmol/l Magnesium Level 2.5 1.8-2.4 mg/dl Total Creatine Kinase 689 39-308 U/L Prostate Specific Antigen 16.700 0.000-4.000 ng/ml Thyroid Stimulating Hormone (TSH) 1.060 0.300-4.500 uIu/ml Microbiology Results 08/16/17 Urine Culture, Received Pending Assessment and Plan Patient is an 82 year old male with a past medical history of B12 deficiency, GI bleed 2/2 diverticulosis, and Arthritis that presented from [facility] with Acute Renal Failure Acute Renal Failure - presents with Cr 7 and CK - 6893, unsure of baseline - both normalizing. Likely multifactorial: prerenal - dehydration, intrarenal - ATN 2/2 mild rhabdomyolysis from inability to get up after fall, post-renal - BPH vs. ?prostate cancer vs. prostatitis. Random Urine Na 45, Cr 80.1 --> FENa 3 %. Nephrology consulted, recs appreciated. Renal US: 4.8cm exophytic cyst involving the inferior pole of the left kidney. Otherwise unremarkable without hydronephrosis or renal calculi - Nieto catheter - IVF1/2 NS + sodium bicarb @ decreased rate of 100mls/hr, per nephro - Continue Flomax - Hold home NSAIDS due to renal failure - Trend CK and BMP q12h - Initial UA contaminated. Repeat UA clean catch from Nieto. If continues to be concerning for infection, may put on abx at that time. - Monitor on telemetry New onset atrial fibrillation - patient asymptomatic. TSH WNL. Attempts for rate control with metoprolol caused hypotension. Improved with diltiazem drip. Echo shows normal LV size without hypertrophy, EF 55-60%. No definite regional wall motion abnormalities. Type 1 diastolic dysfunction. Mildly dilated RV with normal systolic function. Minimally dilated ascending aorta. Sclerotic aortic valve without significant stenosis. Trace aortic regurgitation. Mildly elevated right ventricular systolic pressure (45-50mmHg) - Transition to PO diltiazem 60mg TID (PO conversion rate = [4mg/hr drip rate x 3 =3] x 10 = 150mg daily = ~60mg TID) - IV heparin drip with bridge to warfarin - Trend INR Metabolic acidosis - likely secondary to uremia from renal failure. Venous pH - 7.21, - AGAP 13 - Continue bicarb in IV fluids - Continue to monitor BMP frequently BPH - history of decreasing urinary stream and difficulty placing Nieto. PSA elevated at 16.7 - Continue Flomax - Will need outpatient follow up with urology Arthritis - Hold home NSAIDs DVT - SCDs - IV heparin with bridge to warfarin Code Status - Full Resuscitation Resident Physician Supervision Note: I interviewed and examined the patient. Discussed with Dr. Mendez and agree with findings and plan as documented in the note. Any exceptions or clarifications are listed here: None Documented By: Hussein Qiu feeling better creatinine improving some nocturia prior to admission but doesn' t recall much as far as UTI or prostatitis sx. didn't feel afib vitals noted nad breathing unlabored afib rate controlled arf - likely combination of mechanisms - dehydration/probably ATN, likely at least some element of obstructive, rhabdo probably played a small role -improving, continue to follow, no indications for HD right now new afib - probably PAF that's just being seen now. rate control, anticoagulation otherwise as above Continued [facility] stay due to: abnormal vital signs, voiding difficulties, ambulation difficulties Discharge planning: home Resident Tracking Resident Involvement: Resident Care Provided Care Provided: Adult Hospital Medicine
[2017-08-17 08:04] LABS: BASO % 0.2 %; BASO ABS # 0.01 K/uL (0-0.2); EOS % 1.3 %; EOS ABS # 0.08 K/uL (0-0.5); HEMATOCRIT 32.7 % (42-52); HEMOGLOBIN 11.6 g/dL (14.0-18.0); IG# 0.03 K/uL (0.00-0.02); LYMPH % 8.4 %; LYMPH ABS # 0.52 K/uL (1.2-3.4); MEAN CELL VOLUME 84.5 fL (80-100); MEAN CORPUSCULAR HGB CONC 35.5 g/dl (32-36); MONO % 7.6 %; MONO ABS # 0.47 K/uL (0.11-0.59); NEUT ABS # 5.06 K/uL (1.4-6.5); PLATELET COUNT 225 K/uL (130-400); RED CELL DISTRIBUTION WIDTH CV 14.7 % (11.5-14.5); WHITE BLOOD COUNT 6.17 K/uL (4.8-10.8)
[2017-08-17 08:40] LABS: CALCIUM 7.4 mg/dl (8.5-10.1); CREATININE 4.88 mg/dl (0.60-1.40); POTASSIUM 3.6 mmol/L (3.5-5.1)
[2017-08-17] MEDS: DOCUSATE SODIUM 100 MG CAP PO SCH ×2 (09:05→20:56)
[2017-08-17] MEDS: SENNA 8.6 MG TAB PO SCH (09:05)
[2017-08-17] MEDS: HEPARIN SOD 5000 UNIT/0.5 ML CARP SQ SCH (09:07)
--- NOTE | 2017-08-17 10:05 | Nephrology Progress Note ---
Nephrology Progress Note Date of Service Aug 17, 2017. Chief Complaint Follow-up for acute kidney injury. Subjective Mr. Hayward is was seen and examined in his room this morning with Nataliia at bedside. Renal function continues to improve, creatinine 4.9, potassium normal. Blood pressure stable. Has remain non-oliguric. Continue to be in A fib Review of Systems A complete review of systems was performed. Pertinent positives are noted above. All other systems are negative. Vital Signs Last 8 Hrs Date Time Temp Pulse Resp B/P (MAP) Pulse Ox O2 Delivery O2 Flow Rate FiO2 08/17/17 04:00 Room Air 08/17/17 03:38 106 08/17/17 03:28 36.6 106 17 99/64 (76) 92 Room Air 08/17/17 03:04 93 21 87/66 (73) 08/17/17 03:02 88 15 87/67 (74) 08/17/17 03:00 95 19 85/61 (69) 08/17/17 02:59 97 21 90/59 (69) 08/17/17 02:57 98 19 101/66 (78) 08/17/17 02:55 104 21 105/66 (79) 08/17/17 02:53 112 19 101/59 (73) 08/17/17 02:51 111 21 104/59 (74) 08/17/17 02:49 102 18 107/57 (74) 08/17/17 02:47 97 19 111/63 (79) 08/17/17 02:45 93 18 98/60 (73) 08/17/17 02:43 106 19 92/60 (71) 08/17/17 02:41 103 18 100/58 (72) 08/17/17 02:39 95 18 91/61 (71) 08/17/17 02:38 109 19 91/60 (70) 08/17/17 02:37 99 19 96/62 (73) 08/17/17 02:35 109 22 93/61 (72) 08/17/17 02:34 98 19 96/61 (73) 08/17/17 02:30 104 27 08/17/17 02:12 106 98/62 Last Recorded Weight Weight (Kilograms): 89.600 Physical Exam GENERAL: Elderly male , AAA x 3, pleasant, healthy-appearing, not in any distress. NECK: Supple, no JVD. RESPIRATORY: Normal breathing efforts, no accessory muscle use, clear to auscultation bilaterally, no wheezes or rales. CARDIOVASCULAR: S1, S2 normal, rate rhythm regular. EXTREMITY: No lower extremity edema NEURO: speech fluent. PSYCHIATRY: Normal mood and judgment Family History Negative for CKD/ESRD Social History Smokeless Tobacco Use: chews tobacco inconsistently Alcohol Use: occasionally Drug Use: none Marital Status: in relationship Housing Status: lives alone Retired. Never a smoker Laboratory Results Past 24 Hours 08/17/17 07:44 Red Blood Count 3.87, Mean Corpuscular Volume 84.5, Mean Corpuscular Hemoglobin 30.0, Mean Corpuscular Hemoglobin Concent 35.5, Mean Platelet Volume 9.0, Neutrophils (%) (Auto) 82.0, Lymphocytes (%) (Auto) 8.4, Monocytes (%) (Auto) 7.6, Eosinophils (%) (Auto) 1.3, Basophils (%) (Auto) 0.2, Neutrophils # (Auto) 5.06, Lymphocytes # (Auto) 0.52, Monocytes # (Auto) 0.47, Eosinophils # (Auto) 0.08, Basophils # (Auto) 0.01 08/16/17 15:19 08/16/17 20:07 08/17/17 02:04 Test 08/16/17 13:15 08/16/17 15:19 08/16/17 20:07 08/16/17 23:45 Urine Color YELLOW Urine Appearance CLOUDY (CLEAR) Urine pH 5.0 (4.5-7.5) Urine Specific [place] 1.020 (1.000-1.030) Urine Protein TRACE (NEG) Urine Glucose (UA) NEG (NEG) Urine Ketones NEG (NEG) Urine Occult Blood 3+ (NEG) Urine Nitrite NEG (NEG) Urine Bilirubin NEG (NEG) Urine Urobilinogen NEG (NEG) Urine Leukocyte Esterase MODERATE (NEG) Urine WBC (Auto) 10-30 /hpf (0-5) Urine RBC (Auto) >30 /hpf (0-4) Urine Hyaline Casts (Auto) 1-5 /lpf (0-5) Urine Epithelial Cells (Auto) >30 /lpf (0-5) Urine Bacteria (Auto) NEG (NEG) Urine Crystals UNIDENTIFIED (NONE PRSENT) Urine Yeast (Auto) (NONE PRSENT) Anion Gap 17.0 mmol/L (3-11) 9.0 mmol/L (3-11) Est Creatinine Clear Calc Drug Dose 10.8 ml/min 10.6 ml/min Estimated GFR () 9.1 8.9 Estimated GFR (Non- 7.8 7.6 BUN/Creatinine Ratio 16.3 (10-20) 16.1 (10-20) Calcium Level 7.5 mg/dl (8.5-10.1) 7.4 mg/dl (8.5-10.1) Total Creatine Kinase 1729 U/L (39-308) 1464 U/L (39-308) Test 08/17/17 02:04 08/17/17 07:44 Anion Gap 12.0 mmol/L (3-11) Est Creatinine Clear Calc Drug Dose 11.2 ml/min Estimated GFR () 9.5 Estimated GFR (Non- 8.2 BUN/Creatinine Ratio 16.0 (10-20) Calcium Level 7.6 mg/dl (8.5-10.1) Troponin I < 0.015 ng/ml (0-0.045) White Blood Count 6.17 K/uL (4.8-10.8) Red Blood Count 3.87 M/uL (4.7-6.1) Hemoglobin 11.6 g/dL (14.0-18.0) Hematocrit 32.7 % (42-52) Mean Corpuscular Volume 84.5 fL (80-100) Mean Corpuscular Hemoglobin 30.0 pg (25-34) Mean Corpuscular Hemoglobin Concent 35.5 g/dl (32-36) Platelet Count 225 K/uL (130-400) Mean Platelet Volume 9.0 fL (7.4-10.4) Neutrophils (%) (Auto) 82.0 % Lymphocytes (%) (Auto) 8.4 % Monocytes (%) (Auto) 7.6 % Eosinophils (%) (Auto) 1.3 % Basophils (%) (Auto) 0.2 % Neutrophils # (Auto) 5.06 K/uL (1.4-6.5) Lymphocytes # (Auto) 0.52 K/uL (1.2-3.4) Monocytes # (Auto) 0.47 K/uL (0.11-0.59) Eosinophils # (Auto) 0.08 K/uL (0-0.5) Basophils # (Auto) 0.01 K/uL (0-0.2) RDW Standard Deviation 46.0 fL (36.4-46.3) RDW Coefficient of Variation 14.7 % (11.5-14.5) Immature Granulocyte % (Auto) 0.5 % Immature Granulocyte # (Auto) 0.03 K/uL (0.00-0.02) Ionized Calcium 0.97 mmol/l (1.12-1.32) Allergies Coded Allergies: No Known Allergies (Unverified , 08/15/17) Medications Current Inpatient Medications Medications (Trade) Dose Ordered Sig/Alayna Route Start Time Stop Time Status Last Admin Dose Admin Acetaminophen (Tylenol Tab) 650 mg Q4H PRN PO 08/15/17 21:15 09/14/17 21:14 Ondansetron HCl (Zofran Inj) 4 mg Q6H PRN IV 08/15/17 21:15 09/14/17 21:14 Morphine Sulfate (MoRPHine SULFATE INJ) 2 mg Q30M PRN IV 08/15/17 21:15 08/29/17 21:14 Polyethylene (Miralax Powder Packet) 17 gm DAILY PRN PO 08/15/17 21:15 09/14/17 21:14 Al Hydrox/Mg Hydrox/Simethicone (Maalox Max Susp) 15 ml Q4H PRN PO 08/15/17 23:30 09/14/17 23:29 Magnesium Hydroxide (Milk Of Magnesia Susp) 30 ml Q12H PRN PO 08/15/17 23:30 09/14/17 23:29 Ondansetron HCl (Zofran Inj) 4 mg Q6H PRN IV 08/15/17 23:30 09/14/17 23:29 Nitroglycerin (Nitrostat Tab) 0.4 mg UD PRN SL 08/15/17 23:30 09/14/17 23:29 Docusate Sodium (coLACE CAP) 100 mg BID PO 08/16/17 09:00 09/15/17 08:59 08/16/17 20:07 100 MG Senna (Senokot Tab) 8.6 mg QAM PO 08/16/17 09:00 09/15/17 08:59 08/16/17 08:00 8.6 MG Tamsulosin HCl (Flomax Cap) 0.4 mg HS PO 08/16/17 21:00 09/15/17 20:59 08/16/17 20:07 0.4 MG Sodium Bicarbonate 75 meq/Sodium Chloride 1,075 ml @ 150 mls/hr Q7H10M IV 08/16/17 12:00 09/15/17 11:59 08/17/17 03:38 150 MLS/HR Heparin Sodium (Porcine) (Heparin Sq 5000 Unit/0.5ml) 5,000 unit Q12 SQ 08/16/17 21:00 09/15/17 20:59 08/16/17 21:47 5,000 UNIT Diltiazem HCl 125 mg/Dextrose 125 ml @ 0 mls/hr Q0M PRN IV 08/17/17 04:15 09/16/17 04:14 08/17/17 04:25 1 MLS/HR Impression (1) ARF (acute renal failure) (2) Rhabdomyolysis (3) Metabolic acidosis (4) Dehydration (5) BPH (benign prostatic hyperplasia) (6) Anemia (7) Osteoarthritis 82 yo M with JEFFREY with volume depletion and mild rabdo, with no prior h/o CKD. Cr was 7.0 on admission, started to improve, cr 4.9. has BPH, PSA >15 Recommendations . --renal function continues to improve, has been non-oliguric --decrease IVF to 0.45 NS w/ 75mEq NaHCO3 at 100 cc/hr --Monitor UO, PRP Will follow
[2017-08-17] MEDS ORDERED: ENOXAPARIN 1 MG/KG SQ SCH (11:00)
[2017-08-17 12:07] LABS: PTT PATIENT 28.5 SECONDS (21.0-31.0)
[2017-08-17] MEDS: HEPARIN 25,000 UNIT/500ML D5W 500 ML IV PRN (12:51)
[2017-08-17] MEDS ORDERED: DILTIAZEM HCL 30 MG TAB PO SCH (14:00)
[2017-08-17] MEDS: WARFARIN SOD 5 MG TAB PO SCH (15:08)
[2017-08-17 19:15] LABS: PTT PATIENT 38.7 SECONDS (21.0-31.0)
[2017-08-17 19:47] LABS: CALCIUM 7.4 mg/dl (8.5-10.1); CREATININE 4.51 mg/dl (0.60-1.40); POTASSIUM 3.6 mmol/L (3.5-5.1)
[2017-08-17] MEDS ORDERED: HEPARIN IV BOLUS 7,000 UNIT in SYRINGE 0 ML IV ONE (20:00)
[2017-08-17] MEDS: DILTIAZEM HCL 60 MG TAB PO SCH (20:55)
[2017-08-17] MEDS: TAMSULOSIN HCL 0.4 MG CAP PO SCH (20:56)
[2017-08-18] VITALS (7 sets, daily range): BP systolic 101–126; BP diastolic 56–70; PULSE 70–96; TEMP 36.7–36.8; O2SAT 91–97
[2017-08-18 02:19] LABS: PTT PATIENT 203.3 SECONDS (21.0-31.0)
[2017-08-18 02:32] LABS: HEPATITIS A IGM TC 51813E NON-REACTIVE (NON-REACTIVE); HEPATITIS B CORE IGM TC51854R NON-REACTIVE (NON-REACTIVE)
[2017-08-18 03:30] LABS: HEMATOCRIT 29.4 % (42-52); HEMOGLOBIN 10.1 g/dL (14.0-18.0); MEAN CELL VOLUME 85.2 fL (80-100); MEAN CORPUSCULAR HEMOGLOBIN 29.3 pg (25-34); MEAN CORPUSCULAR HGB CONC 34.4 g/dl (32-36); MEAN PLATELET VOLUME 9.1 fL (7.4-10.4); PLATELET COUNT 217 K/uL (130-400); RED CELL DISTRIBUTION WIDTH CV 14.6 % (11.5-14.5); WHITE BLOOD COUNT 5.24 K/uL (4.8-10.8)
[2017-08-18 03:50] LABS: CALCIUM 7.1 mg/dl (8.5-10.1); POTASSIUM 3.5 mmol/L (3.5-5.1)
[2017-08-18 03:54] LABS: PTT PATIENT 67.9 SECONDS (21.0-31.0)
[2017-08-18 03:58] LABS: PHOSPHORUS 3.1 mg/dl (2.5-4.9)
[2017-08-18] MEDS: HEPARIN 25,000 UNIT/500ML D5W 500 ML IV PRN ×2 (06:25→20:02)
--- NOTE | 2017-08-18 07:11 | Family Medicine Progress Note ---
Progress Note Date of Service Aug 18, 2017. Subjective Pt evaluation today including: conversation w/ patient, conversation w/ family , physical exam, chart review, lab review, review of studies, conversation w/ healthcare market consultant, review of inpatient medication list Patient admits that he feels a little better today. He describes some improvement in appetite and attempts to keel himself hydrated. He states that he still fills weak and is ambulating minimally around the room with a walker. He was out of bed this morning, and then starting experiencing back pain secondary to his arthritis. His NSAIDs have been held in view of JEFFREY. Discussed previous PSA - patient's girlfriend states it was recently drawn, but does not know what it's value was. She recommends calling [facility], where the patient gets all his labs drawn. He otherwise denies fevers/chills, headaches, CP, palpitations, dyspnea, abdominal pain, lower extremity swelling or rashes. His Nieto is in situ and he is stooling without issue. ROS is unremarkable except as noted above. Objective Vital Signs Date Time Temp Pulse Resp B/P (MAP) Pulse Ox O2 Delivery O2 Flow Rate FiO2 08/18/17 04:00 Room Air 08/18/17 03:58 36.7 96 106/56 (73) 91 Room Air 08/17/17 23:59 Room Air 08/17/17 23:33 36.8 85 17 104/55 (71) 93 Room Air 08/17/17 20:00 Room Air 08/17/17 19:42 36.7 94 20 108/75 (86) 93 Room Air 08/17/17 16:05 36.8 89 18 104/66 (79) 94 Room Air 08/17/17 16:00 Room Air 08/17/17 12:20 36.7 96 20 119/73 (88) 93 Room Air 08/17/17 12:00 Room Air 08/17/17 08:36 36.7 106 26 117/70 (86) 100 Room Air 08/17/17 08:00 Room Air Physical Exam General Appearance: WD/WN, no apparent distress Eyes: normal inspection ENT: hearing grossly normal, pharynx normal Respiratory/Chest: lungs clear, normal breath sounds, no respiratory distress, no accessory muscle use Cardiovascular: no murmur, + irregularly irregular Abdomen: normal bowel sounds, non tender, soft Extremities: normal inspection, no pedal edema, no calf tenderness Neurologic/Psychiatric: alert, normal mood/affect, oriented x 3 Skin: normal color, warm/dry, no rash Laboratory Results Results Past 24 Hours Test 08/17/17 11:30 08/17/17 11:42 08/17/17 18:51 08/18/17 01:36 Range/Units Urine Color YELLOW Urine Appearance CLEAR CLEAR Urine pH 5.0 4.5-7.5 Urine Specific [place] 1.020 1.000-1.030 Urine Protein NEG NEG Urine Glucose (UA) NEG NEG Urine Ketones NEG NEG Urine Occult Blood 2+ NEG Urine Nitrite NEG NEG Urine Bilirubin NEG NEG Urine Urobilinogen NEG NEG Urine Leukocyte Esterase SMALL NEG Urine WBC (Auto) 5-10 0-5 /hpf Urine RBC (Auto) 5-10 0-4 /hpf Urine Hyaline Casts (Auto) 1-5 0-5 /lpf Urine Epithelial Cells (Auto) 5-10 0-5 /lpf Urine Bacteria (Auto) NEG NEG Prothrombin Time 10.6 9.0-12.0 SECONDS Prothromb Time International Ratio 1.0 0.9-1.1 Activated Partial Thromboplast Time 28.5 38.7 203.3 21.0-31.0 SECONDS Partial Thromboplastin Ratio 1.1 1.5 7.8 Sodium Level 134 136-145 mmol/L Potassium Level 3.6 3.5-5.1 mmol/L Chloride Level 101 98-107 mmol/L Carbon Dioxide Level 26 21-32 mmol/L Anion Gap 7.0 3-11 mmol/L Blood Urea Nitrogen 77 7-18 mg/dl Creatinine 4.51 0.60-1.40 mg/dl Est Creatinine Clear Calc Drug Dose 14.8 ml/min Estimated GFR () 13.3 Estimated GFR (Non- 11.5 BUN/Creatinine Ratio 17.1 10-20 Random Glucose 124 70-99 mg/dl Calcium Level 7.4 8.5-10.1 mg/dl Total Creatine Kinase 487 39-308 U/L Test 08/18/17 03:18 08/18/17 06:38 08/18/17 07:15 Range/Units White Blood Count 5.24 4.8-10.8 K/uL Red Blood Count 3.45 4.7-6.1 M/uL Hemoglobin 10.1 14.0-18.0 g/dL Hematocrit 29.4 42-52 % Mean Corpuscular Volume 85.2 80-100 fL Mean Corpuscular Hemoglobin 29.3 25-34 pg Mean Corpuscular Hemoglobin Concent 34.4 32-36 g/dl RDW Standard Deviation 46.0 36.4-46.3 fL RDW Coefficient of Variation 14.6 11.5-14.5 % Platelet Count 217 130-400 K/uL Mean Platelet Volume 9.1 7.4-10.4 fL Activated Partial Thromboplast Time 67.9 41.1 21.0-31.0 SECONDS Partial Thromboplastin Ratio 2.7 1.6 Sodium Level 135 136-145 mmol/L Potassium Level 3.5 3.5-5.1 mmol/L Chloride Level 101 98-107 mmol/L Carbon Dioxide Level 29 21-32 mmol/L Anion Gap 5.0 3-11 mmol/L Blood Urea Nitrogen 69 7-18 mg/dl Creatinine 4.00 0.60-1.40 mg/dl Est Creatinine Clear Calc Drug Dose 16.6 ml/min Estimated GFR () 15.3 Estimated GFR (Non- 13.2 BUN/Creatinine Ratio 17.1 10-20 Random Glucose 111 70-99 mg/dl Calcium Level 7.1 8.5-10.1 mg/dl Phosphorus Level 3.1 2.5-4.9 mg/dl Magnesium Level 2.0 1.8-2.4 mg/dl Total Creatine Kinase 305 39-308 U/L Prothrombin Time 11.1 9.0-12.0 SECONDS Prothromb Time International Ratio 1.1 0.9-1.1 Assessment and Plan Patient is an 82 year old male with a past medical history of B12 deficiency, GI bleed 2/2 diverticulosis, and Arthritis that presented from [facility] with Acute Renal Failure Acute Renal Failure - presented with Cr 7 and CK - 6893, unsure of baseline - both normalizing, Cr 4.0 today. Likely multifactorial: prerenal - dehydration, intrarenal - ATN 2/2 mild rhabdomyolysis from inability to get up after fall, post-renal - BPH vs. ?prostate cancer vs. prostatitis. Random Urine Na 45, Cr 80.1 --> FENa 3%. Nephrology consulted, recs appreciated. Renal US: 4.8cm exophytic cyst involving the inferior pole of the left kidney. Otherwise unremarkable without hydronephrosis or renal calculi - Nieto catheter - IVF1/2 NS + sodium bicarb @ decreased rate of 100mls/hr, per nephro - Continue Flomax - Hold home NSAIDS due to renal failure - Trend CK and BMP q12h - Initial UA contaminated. Repeat UA clean catch from Nieto not overtly convincing for UTI. If continues to be concerning for infection, may put on abx at that time. - Monitor on telemetry New onset atrial fibrillation - patient asymptomatic. TSH WNL. Attempts for rate control with metoprolol caused hypotension. Improved with diltiazem drip. Echo shows normal LV size without hypertrophy, EF 55-60%. No definite regional wall motion abnormalities. Type 1 diastolic dysfunction. Mildly dilated RV with normal systolic function. Minimally dilated ascending aorta. Sclerotic aortic valve without significant stenosis. Trace aortic regurgitation. Mildly elevated right ventricular systolic pressure (45-50mmHg) - Continue PO diltiazem 60mg TID - IV heparin drip with bridge to warfarin - Trend INR Metabolic acidosis - likely secondary to uremia from renal failure. Venous pH - 7.21, Anion gap closed now - Continue to monitor BMP BPH - history of decreasing urinary stream and difficulty placing Nieto. PSA elevated at 16.7 - Continue Flomax - Request PSA level from [facility] - Potential trial of void end of week - Will need outpatient follow up with urology Arthritis - Hold home NSAIDs - Warm compress ordered DVT - SCDs - IV heparin with bridge to warfarin Code Status - Full Resuscitation Resident Physician Supervision Note: I interviewed and examined the patient. Discussed with Dr. Mendez and agree with findings and plan as documented in the note. Any exceptions or clarifications are listed here: None Documented By: Hussein Qiu other than back pain feeling better afib controlled vitlas noted nad breathing unlabored no pallor or icterus ARF - appearing prerenal from dehydration likely w element of ATN, probable obstructive from prostate, as well as a small element of rhabdo -improving urinary retention - voiding trial in ~1-2 days -urology f/u since markedly elevated PSA without signs of prostatitis afib - rate controlled, anticoagulation stable for med/surg, PT/OT Continued [facility] stay due to: voiding difficulties, ambulation difficulties Resident Tracking Resident Involvement: Resident Care Provided Care Provided: Adult [facility] Medicine
[2017-08-18 07:24] LABS: INR 1.1 (0.9-1.1); PTT PATIENT 41.1 SECONDS (21.0-31.0)
[2017-08-18] MEDS: SODIUM BICARBONATE 8.4% INJ 75 MEQ in SODIUM CHLORIDE 0.45% 1000ML 1,000 ML IV SCH (08:12)
[2017-08-18] MEDS: SENNA 8.6 MG TAB PO SCH (08:13)
[2017-08-18] MEDS: DILTIAZEM HCL 60 MG TAB PO SCH ×3 (08:13→20:04)
[2017-08-18] MEDS: DOCUSATE SODIUM 100 MG CAP PO SCH ×2 (08:13→20:04)
[2017-08-18] MEDS ORDERED: SODIUM CHLORIDE 0.9% 1000ML 1,000 ML IV SCH (09:00)
[2017-08-18 10:32] LABS: PTT PATIENT 41.2 SECONDS (21.0-31.0)
[2017-08-18] MEDS ORDERED: HEPARIN IV BOLUS 3,000 UNIT in SYRINGE 0 ML IV ONE (11:30)
--- NOTE | 2017-08-18 11:30 | Nephrology Progress Note ---
Nephrology Progress Note Date of Service Aug 18, 2017. Chief Complaint Follow-up for acute kidney injury. Subjective Mr. Yesy malloy was seen and examined in his room this morning with Nataliia at bedside. Renal function continues to improve, creatinine 4.0, potassium normal. Blood pressure stable. Has remain non-oliguric. Continue to be in A fib, started on anticoagulation with heparinThe. Review of Systems A complete review of systems was performed. Pertinent positives are noted above. All other systems are negative. Vital Signs Last 8 Hrs Date Time Temp Pulse Resp B/P (MAP) Pulse Ox O2 Delivery O2 Flow Rate FiO2 08/18/17 08:00 Room Air 08/18/17 07:35 36.8 76 18 126/64 (84) 97 08/18/17 04:00 Room Air 08/18/17 03:58 36.7 96 106/56 (73) 91 Room Air Last Recorded Weight Weight (Kilograms): 89.400 Physical Exam GENERAL: Elderly male , AAA x 3, pleasant, not in any distress. NECK: Supple, no JVD. RESPIRATORY: Normal breathing efforts, no accessory muscle use, clear to auscultation bilaterally, no wheezes or rales. CARDIOVASCULAR: S1, S2 normal, rate rhythm regular. EXTREMITY: No lower extremity edema NEURO: speech fluent. PSYCHIATRY: Normal mood and judgment Family History Negative for CKD/ESRD Social History Smokeless Tobacco Use: chews tobacco inconsistently Alcohol Use: occasionally Drug Use: none Marital Status: in relationship Housing Status: lives alone Retired. Never a smoker Laboratory Results Past 24 Hours 08/18/17 03:18 08/17/17 18:51 08/18/17 03:18 Test 08/17/17 11:30 08/17/17 11:42 08/17/17 18:51 08/18/17 01:36 Urine Color YELLOW Urine Appearance CLEAR (CLEAR) Urine pH 5.0 (4.5-7.5) Urine Specific [place] 1.020 (1.000-1.030) Urine Protein NEG (NEG) Urine Glucose (UA) NEG (NEG) Urine Ketones NEG (NEG) Urine Occult Blood 2+ (NEG) Urine Nitrite NEG (NEG) Urine Bilirubin NEG (NEG) Urine Urobilinogen NEG (NEG) Urine Leukocyte Esterase SMALL (NEG) Urine WBC (Auto) 5-10 /hpf (0-5) Urine RBC (Auto) 5-10 /hpf (0-4) Urine Hyaline Casts (Auto) 1-5 /lpf (0-5) Urine Epithelial Cells (Auto) 5-10 /lpf (0-5) Urine Bacteria (Auto) NEG (NEG) Prothrombin Time 10.6 SECONDS (9.0-12.0) Prothromb Time International Ratio 1.0 (0.9-1.1) Activated Partial Thromboplast Time 28.5 SECONDS (21.0-31.0) 38.7 SECONDS (21.0-31.0) 203.3 SECONDS (21.0-31.0) Partial Thromboplastin Ratio 1.1 1.5 7.8 Anion Gap 7.0 mmol/L (3-11) Est Creatinine Clear Calc Drug Dose 14.8 ml/min Estimated GFR () 13.3 Estimated GFR (Non- 11.5 BUN/Creatinine Ratio 17.1 (10-20) Calcium Level 7.4 mg/dl (8.5-10.1) Total Creatine Kinase 487 U/L (39-308) Test 08/18/17 03:18 08/18/17 06:38 08/18/17 07:15 08/18/17 10:06 Red Blood Count 3.45 M/uL (4.7-6.1) Mean Corpuscular Volume 85.2 fL (80-100) Mean Corpuscular Hemoglobin 29.3 pg (25-34) Mean Corpuscular Hemoglobin Concent 34.4 g/dl (32-36) RDW Standard Deviation 46.0 fL (36.4-46.3) RDW Coefficient of Variation 14.6 % (11.5-14.5) Mean Platelet Volume 9.1 fL (7.4-10.4) Activated Partial Thromboplast Time 67.9 SECONDS (21.0-31.0) 41.1 SECONDS (21.0-31.0) 41.2 SECONDS (21.0-31.0) Partial Thromboplastin Ratio 2.7 1.6 1.6 Anion Gap 5.0 mmol/L (3-11) Est Creatinine Clear Calc Drug Dose 16.6 ml/min Estimated GFR () 15.3 Estimated GFR (Non- 13.2 BUN/Creatinine Ratio 17.1 (10-20) Calcium Level 7.1 mg/dl (8.5-10.1) Phosphorus Level 3.1 mg/dl (2.5-4.9) Magnesium Level 2.0 mg/dl (1.8-2.4) Total Creatine Kinase 305 U/L (39-308) Prothrombin Time 11.1 SECONDS (9.0-12.0) Prothromb Time International Ratio 1.1 (0.9-1.1) Allergies Coded Allergies: No Known Allergies (Unverified , 08/15/17) Medications Current Inpatient Medications Medications (Trade) Dose Ordered Sig/Alayna Route Start Time Stop Time Status Last Admin Dose Admin Acetaminophen (Tylenol Tab) 650 mg Q4H PRN PO 08/15/17 21:15 09/14/17 21:14 Morphine Sulfate (MoRPHine SULFATE INJ) 2 mg Q30M PRN IV 08/15/17 21:15 08/29/17 21:14 Polyethylene (Miralax Powder Packet) 17 gm DAILY PRN PO 08/15/17 21:15 09/14/17 21:14 Al Hydrox/Mg Hydrox/Simethicone (Maalox Max Susp) 15 ml Q4H PRN PO 08/15/17 23:30 09/14/17 23:29 Magnesium Hydroxide (Milk Of Magnesia Susp) 30 ml Q12H PRN PO 08/15/17 23:30 09/14/17 23:29 Ondansetron HCl (Zofran Inj) 4 mg Q6H PRN IV 08/15/17 23:30 09/14/17 23:29 Nitroglycerin (Nitrostat Tab) 0.4 mg UD PRN SL 08/15/17 23:30 09/14/17 23:29 Docusate Sodium (coLACE CAP) 100 mg BID PO 08/16/17 09:00 09/15/17 08:59 08/18/17 08:13 100 MG Senna (Senokot Tab) 8.6 mg QAM PO 08/16/17 09:00 09/15/17 08:59 08/18/17 08:13 8.6 MG Tamsulosin HCl (Flomax Cap) 0.4 mg HS PO 08/16/17 21:00 09/15/17 20:59 08/17/17 20:56 0.4 MG Warfarin Sodium (Coumadin Tab) 5 mg DAILY@16 PO 08/17/17 16:00 09/16/17 15:59 08/17/17 15:08 5 MG Heparin Sodium/ Dextrose 500 ml @ 35 mls/hr [id number] PRN IV 08/17/17 13:00 09/16/17 12:59 08/18/17 06:25 32 MLS/HR Diltiazem HCl (Cardizem Tab) 60 mg TID PO 08/17/17 21:00 09/16/17 20:59 08/18/17 08:13 60 MG Sodium Chloride 1,000 ml @ 100 mls/hr Q10H IV 08/18/17 09:00 09/17/17 08:59 08/18/17 09:34 100 MLS/HR Heparin Sodium (Porcine) 3000 unit/Syringe 3 ml @ 10 mls/min 1130 ONCE IV 08/18/17 11:30 08/18/17 11:31 Impression (1) ARF (acute renal failure) (2) Rhabdomyolysis (3) Metabolic acidosis (4) Dehydration (5) BPH (benign prostatic hyperplasia) (6) Anemia (7) Osteoarthritis 82 yo M with JEFFREY with volume depletion and mild rabdo, with no prior h/o CKD. Cr was 7.0 on admission, started to improve, cr 4.9. has BPH, PSA >15 Recommendations . --renal function continues to improve, has been non-oliguric. Electrolyte, blood pressure volume status acceptable. --discontinue IV fluid and encourage p.o. intake --Monitor UO, PRP Will follow
[2017-08-18] MEDS: WARFARIN SOD 5 MG TAB PO SCH (15:40)
[2017-08-18 19:14] LABS: PTT PATIENT 61.3 SECONDS (21.0-31.0)
[2017-08-18] MEDS ORDERED: NURSING VERBAL MED ORDER ONE (19:30)
[2017-08-18] MEDS: TAMSULOSIN HCL 0.4 MG CAP PO SCH (20:04)
[2017-08-19] MEDS: ACETAMINOPHEN 325 MG TAB PO PRN ×2 (02:57→15:38)
[2017-08-19 05:04] LABS: HEMATOCRIT 30.7 % (42-52); HEMOGLOBIN 10.7 g/dL (14.0-18.0); MEAN CELL VOLUME 86.5 fL (80-100); MEAN CORPUSCULAR HEMOGLOBIN 30.1 pg (25-34); MEAN CORPUSCULAR HGB CONC 34.9 g/dl (32-36); MEAN PLATELET VOLUME 9.5 fL (7.4-10.4); PLATELET COUNT 262 K/uL (130-400); RED CELL DISTRIBUTION WIDTH CV 14.7 % (11.5-14.5); RED CELL DISTRIBUTION WIDTH SD 46.9 fL (36.4-46.3); WHITE BLOOD COUNT 6.36 K/uL (4.8-10.8)
[2017-08-19 05:22] LABS: INR 1.3 (0.9-1.1)
[2017-08-19 05:31] LABS: PTT PATIENT 47.6 SECONDS (21.0-31.0)
[2017-08-19 05:34] LABS: CALCIUM 7.7 mg/dl (8.5-10.1); CREATININE 2.85 mg/dl (0.60-1.40); POTASSIUM 3.5 mmol/L (3.5-5.1)
[2017-08-19 07:28] VITALS: BP 107/69; PULSE 82; TEMP 36.6; O2SAT 95
[2017-08-19] MEDS: DILTIAZEM HCL 60 MG TAB PO SCH (08:45)
[2017-08-19] MEDS: SENNA 8.6 MG TAB PO SCH (08:45)
[2017-08-19] MEDS: DOCUSATE SODIUM 100 MG CAP PO SCH ×2 (08:45→20:16)
--- NOTE | 2017-08-19 09:05 | Family Medicine Progress Note ---
Progress Note Date of Service Aug 19, 2017. Subjective Pt evaluation today including: conversation w/ patient, conversation w/ family , physical exam, chart review, lab review, review of studies, conversation w/ public relations consultant, review of inpatient medication list Patient admits that he feels a little better today. He describes some improvement in appetite and attempts to keep himself hydrated. He ambulated with PT this AM, and states he felt ok doing so. He otherwise denies fevers/ chills, headaches, CP, palpitations, dyspnea, abdominal pain, lower extremity swelling or rashes. His Marin is in situ and he is stooling without issue. ROS is unremarkable except as noted above. Objective Vital Signs Date Time Temp Pulse Resp B/P (MAP) Pulse Ox O2 Delivery O2 Flow Rate FiO2 08/19/17 07:28 36.6 82 18 107/69 (82) 95 Room Air 08/19/17 00:15 Room Air 08/18/17 23:41 36.8 70 20 104/60 (75) 91 Room Air 08/18/17 19:47 36.8 79 19 107/62 (77) 91 Room Air 08/18/17 16:00 92 Room Air 08/18/17 15:34 36.8 80 22 92 08/18/17 12:00 Room Air 08/18/17 11:58 36.8 80 22 101/70 (80) 92 Room Air 08/18/17 11:50 Room Air Physical Exam Notes: General Appearance: WD/WN, no apparent distress Eyes: normal inspection ENT: hearing grossly normal, pharynx normal Respiratory/Chest: lungs clear, normal breath sounds, no respiratory distress, no accessory muscle use Cardiovascular: no murmur, + irregularly irregular Abdomen: normal bowel sounds, non tender, soft Extremities: normal inspection, no pedal edema, no calf tenderness Neurologic/Psychiatric: alert, normal mood/affect, oriented x 3, no motor/ sensory deficits (hip flexors now 5/5) Skin: normal color, warm/dry, no rash Laboratory Results Results Past 24 Hours Test 08/19/17 04:33 Range/Units White Blood Count 6.36 4.8-10.8 K/uL Red Blood Count 3.55 4.7-6.1 M/uL Hemoglobin 10.7 14.0-18.0 g/dL Hematocrit 30.7 42-52 % Mean Corpuscular Volume 86.5 80-100 fL Mean Corpuscular Hemoglobin 30.1 25-34 pg Mean Corpuscular Hemoglobin Concent 34.9 32-36 g/dl RDW Standard Deviation 46.9 36.4-46.3 fL RDW Coefficient of Variation 14.7 11.5-14.5 % Platelet Count 262 130-400 K/uL Mean Platelet Volume 9.5 7.4-10.4 fL Prothrombin Time 13.1 9.0-12.0 SECONDS Prothromb Time International Ratio 1.3 0.9-1.1 Activated Partial Thromboplast Time 47.6 21.0-31.0 SECONDS Partial Thromboplastin Ratio 1.8 Sodium Level 135 136-145 mmol/L Potassium Level 3.5 3.5-5.1 mmol/L Chloride Level 103 98-107 mmol/L Carbon Dioxide Level 24 21-32 mmol/L Anion Gap 8.0 3-11 mmol/L Blood Urea Nitrogen 51 7-18 mg/dl Creatinine 2.85 0.60-1.40 mg/dl Est Creatinine Clear Calc Drug Dose 23.4 ml/min Estimated GFR () 23.1 Estimated GFR (Non- 20.0 BUN/Creatinine Ratio 18.0 10-20 Random Glucose 123 70-99 mg/dl Calcium Level 7.7 8.5-10.1 mg/dl Assessment and Plan a`Patient is an 82 year old male with a past medical history of B12 deficiency, GI bleed 2/2 diverticulosis, and Arthritis that presented from [facility] with Acute Renal Failure Acute Renal Failure - presented with Cr 7 and CK - 6893, unsure of baseline - both normalizing, Cr 4.0 today. Likely multifactorial: prerenal - dehydration, intrarenal - ATN 2/2 mild rhabdomyolysis from inability to get up after fall, post-renal - BPH vs. ?prostate cancer vs. prostatitis. Random Urine Na 45, Cr 80.1 --> FENa 3%. Nephrology consulted, recs appreciated. Renal US: 4.8cm exophytic cyst involving the inferior pole of the left kidney. Otherwise unremarkable without hydronephrosis or renal calculi. Initial UA contaminated. Repeat UA clean catch from Marin not overtly convincing for UTI. - Continue PO fluid intake - Continue Flomax - Hold home NSAIDS due to renal failure New onset atrial fibrillation - patient asymptomatic. TSH WNL. Attempts for rate control with metoprolol caused hypotension. Improved with diltiazem drip. Echo shows normal LV size without hypertrophy, EF 55-60%. No definite regional wall motion abnormalities. Type 1 diastolic dysfunction. Mildly dilated RV with normal systolic function. Minimally dilated ascending aorta. Sclerotic aortic valve without significant stenosis. Trace aortic regurgitation. Mildly elevated right ventricular systolic pressure (45-50mmHg) - Transition from PO diltiazem IR 60mg TID to long acting meds. Gave 120 PO diltiazem SR 120 mg today, with plans for PO diltiazem ER 180mg starting tomorrow - IV heparin drip with bridge to warfarin. INR 1.3 today - Trend INR Metabolic acidosis - likely secondary to uremia from renal failure. Venous pH - 7.21, Anion gap closed now. acidosis resolved. - Continue to monitor BMP BPH - history of decreasing urinary stream and difficulty placing Marin. PSA elevated at 16.7 - Continue Flomax - Request PSA level from [facility] - D/c Marin catheter, trial of void - Will need outpatient follow up with urology Arthritis - Hold home NSAIDs - Warm compress ordered DVT - SCDs - IV heparin with bridge to warfarin Code Status - Full Resuscitation Resident Physician Supervision Note: I interviewed and examined the patient. Discussed with Dr. Mendez and agree with findings and plan as documented in the note. Any exceptions or clarifications are listed here: None Documented By: Hussein Qiu feeling better voiding OK marin out a few hours ago alannah noted nad breathing unlabored no pallor or icterus ARF - see above, improving, hopefully home tomorrow afib - rate control, anticoagulation Continued [facility] stay due to: voiding difficulties Discharge planning: home Resident Tracking Resident Involvement: Resident Care Provided Care Provided: Adult Hospital Medicine
--- NOTE | 2017-08-19 10:11 | Nephrology Progress Note ---
Nephrology Progress Note Date of Service Aug 19, 2017. Chief Complaint Follow-up for acute kidney injury. Subjective Mr. Yesy malloy was seen and examined in his room this morning with Nataliia at bedside. Renal function continues to improve, creatinine 2.9, potassium normal. Blood pressure stable. Has remain non-oliguric. Continue to be in A fib, on anticoagulation with heparin. Review of Systems A complete review of systems was performed. Pertinent positives are noted above. All other systems are negative. Vital Signs Last 8 Hrs Date Time Temp Pulse Resp B/P (MAP) Pulse Ox O2 Delivery O2 Flow Rate FiO2 08/19/17 07:28 36.6 82 18 107/69 (82) 95 Room Air Last Recorded Weight Weight (Kilograms): 89.400 Physical Exam GENERAL: Elderly male , AAA x 3, pleasant, not in any distress. NECK: Supple, no JVD. RESPIRATORY: Normal breathing efforts, no accessory muscle use, clear to auscultation bilaterally, no wheezes or rales. CARDIOVASCULAR: S1, S2 normal, rate rhythm regular. EXTREMITY: No lower extremity edema NEURO: speech fluent. PSYCHIATRY: Normal mood and judgment Family History Negative for CKD/ESRD Social History Smokeless Tobacco Use: chews tobacco inconsistently Alcohol Use: occasionally Drug Use: none Marital Status: in relationship Housing Status: lives alone Retired. Never a smoker Laboratory Results Past 24 Hours 08/19/17 04:33 08/19/17 04:33 Test 08/18/17 10:06 08/18/17 18:07 08/19/17 04:33 08/19/17 06:53 Activated Partial Thromboplast Time 41.2 SECONDS (21.0-31.0) 61.3 SECONDS (21.0-31.0) 47.6 SECONDS (21.0-31.0) Partial Thromboplastin Ratio 1.6 2.4 1.8 Red Blood Count 3.55 M/uL (4.7-6.1) Mean Corpuscular Volume 86.5 fL (80-100) Mean Corpuscular Hemoglobin 30.1 pg (25-34) Mean Corpuscular Hemoglobin Concent 34.9 g/dl (32-36) RDW Standard Deviation 46.9 fL (36.4-46.3) RDW Coefficient of Variation 14.7 % (11.5-14.5) Mean Platelet Volume 9.5 fL (7.4-10.4) Prothrombin Time 13.1 SECONDS (9.0-12.0) Prothromb Time International Ratio 1.3 (0.9-1.1) Anion Gap 8.0 mmol/L (3-11) Est Creatinine Clear Calc Drug Dose 23.4 ml/min Estimated GFR () 23.1 Estimated GFR (Non- 20.0 BUN/Creatinine Ratio 18.0 (10-20) Calcium Level 7.7 mg/dl (8.5-10.1) Allergies Coded Allergies: No Known Allergies (Unverified , 08/15/17) Medications Current Inpatient Medications Medications (Trade) Dose Ordered Sig/Alayna Route Start Time Stop Time Status Last Admin Dose Admin Acetaminophen (Tylenol Tab) 650 mg Q4H PRN PO 08/15/17 21:15 09/14/17 21:14 08/19/17 02:57 650 MG Morphine Sulfate (MoRPHine SULFATE INJ) 2 mg Q30M PRN IV 08/15/17 21:15 08/29/17 21:14 Polyethylene (Miralax Powder Packet) 17 gm DAILY PRN PO 08/15/17 21:15 09/14/17 21:14 Al Hydrox/Mg Hydrox/Simethicone (Maalox Max Susp) 15 ml Q4H PRN PO 08/15/17 23:30 09/14/17 23:29 Magnesium Hydroxide (Milk Of Magnesia Susp) 30 ml Q12H PRN PO 08/15/17 23:30 09/14/17 23:29 Ondansetron HCl (Zofran Inj) 4 mg Q6H PRN IV 08/15/17 23:30 09/14/17 23:29 Nitroglycerin (Nitrostat Tab) 0.4 mg UD PRN SL 08/15/17 23:30 09/14/17 23:29 Docusate Sodium (coLACE CAP) 100 mg BID PO 08/16/17 09:00 09/15/17 08:59 08/18/17 20:04 100 MG Senna (Senokot Tab) 8.6 mg QAM PO 08/16/17 09:00 09/15/17 08:59 08/18/17 08:13 8.6 MG Tamsulosin HCl (Flomax Cap) 0.4 mg HS PO 08/16/17 21:00 09/15/17 20:59 08/18/17 20:04 0.4 MG Warfarin Sodium (Coumadin Tab) 5 mg DAILY@16 PO 08/17/17 16:00 09/16/17 15:59 08/18/17 15:40 5 MG Heparin Sodium/ Dextrose 500 ml @ 35 mls/hr [id number] PRN IV 08/17/17 13:00 09/16/17 12:59 08/18/17 20:02 35 MLS/HR Diltiazem HCl (Cardizem Tab) 60 mg TID PO 08/17/17 21:00 09/16/17 20:59 08/18/17 20:04 60 MG Impression (1) ARF (acute renal failure) (2) Rhabdomyolysis (3) Metabolic acidosis (4) Dehydration (5) BPH (benign prostatic hyperplasia) (6) Anemia (7) Osteoarthritis 82 yo M with JEFFREY with volume depletion and mild rabdo, with no prior h/o CKD. Cr was 7.0 on admission, started to improve, cr 4.9. has BPH, PSA >15 Recommendations . --renal function continues to improve, has been non-oliguric. Electrolyte, blood pressure volume status acceptable. --Monitor PRP while recovering. --discontinue Nieto catheter, with history of BPH and elevated creatinine PSA, suggest voiding trial prior to removing the catheter. Will need Urology evaluation the either as an inpatient or needs to be set up for outpatient. Will follow
[2017-08-19] MEDS: HEPARIN 25,000 UNIT/500ML D5W 500 ML IV PRN (10:38)
[2017-08-19] MEDS: WARFARIN SOD 5 MG TAB PO SCH (15:38)
[2017-08-19 16:00] VITALS: O2SAT 95
[2017-08-19] MEDS: DILTIAZEM SR 60 MG CAP PO SCH ×2 (16:35→20:15)
[2017-08-19 17:01] VITALS: BP 111/70; PULSE 70; TEMP 36.5; O2SAT 92
[2017-08-19] MEDS: TAMSULOSIN HCL 0.4 MG CAP PO SCH (20:16)
[2017-08-19 20:30] VITALS: BP 105/69; PULSE 60; O2SAT 96
[2017-08-19 23:52] VITALS: BP 104/60; PULSE 54; TEMP 36.6
[2017-08-20] MEDS: HEPARIN 25,000 UNIT/500ML D5W 500 ML IV PRN ×2 (01:31→07:15)
[2017-08-20 06:30] LABS: HEMATOCRIT 32.9 % (42-52); HEMOGLOBIN 11.1 g/dL (14.0-18.0); MEAN CELL VOLUME 87.3 fL (80-100); MEAN CORPUSCULAR HEMOGLOBIN 29.4 pg (25-34); MEAN CORPUSCULAR HGB CONC 33.7 g/dl (32-36); MEAN PLATELET VOLUME 9.2 fL (7.4-10.4); PLATELET COUNT 296 K/uL (130-400); RED CELL DISTRIBUTION WIDTH CV 14.6 % (11.5-14.5); RED CELL DISTRIBUTION WIDTH SD 46.9 fL (36.4-46.3); WHITE BLOOD COUNT 7.41 K/uL (4.8-10.8)
[2017-08-20 06:57] LABS: INR 1.6 (0.9-1.1)
[2017-08-20 07:05] LABS: CREATININE 2.21 mg/dl (0.60-1.40); PTT PATIENT 57.4 SECONDS (21.0-31.0)
[2017-08-20 07:06] LABS: ALBUMIN 2.2 gm/dl (3.4-5.0); CALCIUM 7.9 mg/dl (8.5-10.1); POTASSIUM 3.6 mmol/L (3.5-5.1)
[2017-08-20 07:08] LABS: TOTAL PROTEIN 6.2 gm/dl (6.4-8.2)
[2017-08-20 08:12] VITALS: BP 110/61; PULSE 54; TEMP 36.8; O2SAT 93
[2017-08-20] MEDS: DOCUSATE SODIUM 100 MG CAP PO SCH (08:52)
[2017-08-20] MEDS: SENNA 8.6 MG TAB PO SCH (08:52)
[2017-08-20] MEDS ORDERED: DILTIAZEM HCL 180 MG ER CAP PO SCH (09:00)
[2017-08-20 09:15] VITALS: PULSE 64
[2017-08-20] MEDS ORDERED: DLCSR180 PO (09:58)
[2017-08-20] MEDS ORDERED: CMD5 PO (09:58)
[2017-08-20] MEDS ORDERED: TRAM-10 PO (09:58)
[2017-08-20] MEDS ORDERED: FLM4 PO (09:58)
--- NOTE | 2017-08-20 10:11 | Nephrology Progress Note ---
Nephrology Progress Note Date of Service Aug 20, 2017. Chief Complaint Follow-up for acute kidney injury. Wen Magallanes was seen and examined in his room this morning with his Nataliia at bedside. Overall he is feeling better he just wants to go home. Blood pressure , volume status electrolyte acceptable. Renal function continues to improve creatinine 2.1 this morning, voiding normally. INR 1.6. Review of Systems A complete review of systems was performed. Pertinent positives are noted above. All other systems are negative. Vital Signs Last 8 Hrs Date Time Temp Pulse Resp B/P (MAP) Pulse Ox O2 Delivery O2 Flow Rate FiO2 08/20/17 08:12 36.8 54 18 110/61 (77) 93 Room Air 08/20/17 07:59 Room Air Last Recorded Weight Weight (Kilograms): 89.400 Physical Exam GENERAL: Elderly male , AAA x 3, pleasant, not in any distress. NECK: Supple, no JVD. RESPIRATORY: Normal breathing efforts, no accessory muscle use, clear to auscultation bilaterally, no wheezes or rales. CARDIOVASCULAR: S1, S2 normal, rate rhythm regular. EXTREMITY: No lower extremity edema NEURO: speech fluent. PSYCHIATRY: Normal mood and judgment Family History Negative for CKD/ESRD Social History Smokeless Tobacco Use: chews tobacco inconsistently Alcohol Use: occasionally Drug Use: none Marital Status: in relationship Housing Status: lives alone Retired. Never a smoker Laboratory Results Past 24 Hours 08/20/17 06:09 08/20/17 06:09 Test 08/20/17 06:09 Red Blood Count 3.77 M/uL (4.7-6.1) Mean Corpuscular Volume 87.3 fL (80-100) Mean Corpuscular Hemoglobin 29.4 pg (25-34) Mean Corpuscular Hemoglobin Concent 33.7 g/dl (32-36) RDW Standard Deviation 46.9 fL (36.4-46.3) RDW Coefficient of Variation 14.6 % (11.5-14.5) Mean Platelet Volume 9.2 fL (7.4-10.4) Prothrombin Time 16.6 SECONDS (9.0-12.0) Prothromb Time International Ratio 1.6 (0.9-1.1) Activated Partial Thromboplast Time 57.4 SECONDS (21.0-31.0) Partial Thromboplastin Ratio 2.2 Anion Gap 8.0 mmol/L (3-11) Est Creatinine Clear Calc Drug Dose 30.1 ml/min Estimated GFR () 31.4 Estimated GFR (Non- 27.1 BUN/Creatinine Ratio 15.9 (10-20) Calcium Level 7.9 mg/dl (8.5-10.1) Total Bilirubin 1.0 mg/dl (0.2-1) Direct Bilirubin 0.4 mg/dl (0-0.2) Aspartate Amino Transf (AST/SGOT) 45 U/L (15-37) Alanine Aminotransferase (ALT/SGPT) 57 U/L (12-78) Alkaline Phosphatase 53 U/L (45-117) Total Protein 6.2 gm/dl (6.4-8.2) Albumin 2.2 gm/dl (3.4-5.0) Allergies Coded Allergies: No Known Allergies (Unverified , 08/15/17) Medications Current Inpatient Medications Medications (Trade) Dose Ordered Sig/Alayna Route Start Time Stop Time Status Last Admin Dose Admin Acetaminophen (Tylenol Tab) 650 mg Q4H PRN PO 08/15/17 21:15 09/14/17 21:14 08/19/17 15:38 650 MG Morphine Sulfate (MoRPHine SULFATE INJ) 2 mg Q30M PRN IV 08/15/17 21:15 08/29/17 21:14 Polyethylene (Miralax Powder Packet) 17 gm DAILY PRN PO 08/15/17 21:15 09/14/17 21:14 Al Hydrox/Mg Hydrox/Simethicone (Maalox Max Susp) 15 ml Q4H PRN PO 08/15/17 23:30 09/14/17 23:29 Magnesium Hydroxide (Milk Of Magnesia Susp) 30 ml Q12H PRN PO 08/15/17 23:30 09/14/17 23:29 Ondansetron HCl (Zofran Inj) 4 mg Q6H PRN IV 08/15/17 23:30 09/14/17 23:29 Nitroglycerin (Nitrostat Tab) 0.4 mg UD PRN SL 08/15/17 23:30 09/14/17 23:29 Docusate Sodium (coLACE CAP) 100 mg BID PO 08/16/17 09:00 09/15/17 08:59 08/19/17 20:16 100 MG Senna (Senokot Tab) 8.6 mg QAM PO 08/16/17 09:00 09/15/17 08:59 08/19/17 08:45 8.6 MG Tamsulosin HCl (Flomax Cap) 0.4 mg HS PO 08/16/17 21:00 09/15/17 20:59 08/19/17 20:16 0.4 MG Warfarin Sodium (Coumadin Tab) 5 mg DAILY@16 PO 08/17/17 16:00 09/16/17 15:59 08/19/17 15:38 5 MG Heparin Sodium/ Dextrose 500 ml @ 35 mls/hr [id number] PRN IV 08/17/17 13:00 09/16/17 12:59 08/20/17 07:15 35 MLS/HR Diltiazem HCl (Dilacor Xr Cap) 180 mg QAM PO 08/20/17 09:00 09/19/17 08:59 Impression (1) ARF (acute renal failure) (2) Rhabdomyolysis (3) Metabolic acidosis (4) Dehydration (5) BPH (benign prostatic hyperplasia) (6) Anemia (7) Osteoarthritis 82 yo M with JEFFREY with volume depletion and mild rabdo, with no prior h/o CKD. Cr was 7.0 on admission, started to improve, cr 4.9. has BPH, PSA >15 Recommendations . --renal function continues to improve, has been non-oliguric. Electrolyte, blood pressure volume status acceptable. --Monitor PRP while recovering. --discontinue Nieto catheter, with history of BPH and elevated creatinine PSA, suggest voiding trial prior to removing the catheter. Will need Urology evaluation the either as an inpatient or needs to be set up for outpatient. --avoid all NSAIDs, okay to use Tylenol or tramadol for pain --Okay to be discharged with outpatient follow-up suggest renal panel 2-3 days after discharge, outpatient follow-up in 2 weeks, repeat lab prior to the visit. --please send the follow-up lab to Dr. Jackson for review and schedule follow- up with outpatient follow-up with Dr. Jackson in 2 weeks Will follow
--- NOTE | 2017-08-20 13:08 | Discharge Instructions ---
Discharge Instructions Date of Service Aug 20, 2017. Admission Reason for Admission: Acute Renal Failure, Metabolic Acidosis Discharge Discharge Diagnosis / Problem: Acute renal failure, atrial fibrillation Discharge Goals Goal(s): Decrease discomfort, Improve disease control, Diagnostic testing, Therapeutic intervention Activity Recommendations Activity Limitations: resume your previous activity . Instructions / Follow-Up Instructions / Follow-Up You presented to hospital with acute renal failure with creatinine of 7, which likely occurred due to a number of factors including dehydration and potentially a degree of enlarged prostate. Aggressive IV fluids helped to improve the kidney function, and the creatine on discharge is less than 3. In hospital, your heart was also found to be in atrial fibrillation and you were put on medications for this. On discharge you have been placed on a medication to control your heart rate, diltiazem, and to keep your blood from clotting, warfarin (Coumadin). These should be taken at the same time daily. Another medication to help your prostate block the urinary tube to a lesser degree, tamsulosin (Flomax) should be taken every night. Additionally it is highly recommended you keep yourself well hydrated with water . You are advised to avoid the use of all NSAIDs (ibuprofen, Aleve, Motrin, naproxen etc.) For your arthritis pain, you can try a warm compress, use Tylenol, and a small supply of tramadol (Ultram) has been prescribed for breakthrough pain. It is recommended that blood work be performed ~3-4 days from discharge. These results will be forwarded to your PCP and casserole preparer, and they will get in touch with you if there are any urgent findings. The casserole preparer will see you in ~2 weeks. A second set of labs is to be done 1- 2 days prior to this appointment. Follow up with your PCP in 1 week is also advisable to manage your warfarin ( Coumadin) based on your INR levels. Finally, you are being set up with a rolling walker and home PT/OT in efforts to help you get stronger/safer. If you have any questions, please let us know. Thank you for allowing us to participate in your care Current Hospital Diet Patient's current hospital diet: AHA Diet (Heart Healthy), Renal Diet Discharge Diet Recommended Diet: AHA Diet (Heart Healthy), Renal Diet Pending Studies Studies pending at discharge: no Medical Emergencies . Who to Call and When: Medical Emergencies: If at any time you feel your situation is an emergency, please call 911 immediately. . Non-Emergent Contact Non-Emergency issues call your: Primary Care Provider, Sql Manager . . "Provider Documentation" section prepared by Natalia Mendez. . VTE Core Measure Inpt VTE Proph given/why not?: SCD's Resident Tracking Resident Involvement: Resident Care Provided Care Provided: Adult Hospital Medicine
[2017-08-20 15:18] VITALS: BP 119/71; PULSE 69; TEMP 36.5; O2SAT 94
--- NOTE | 2017-08-20 15:26 | Discharge Summary ---
Discharge Summary Date of Service Aug 20, 2017. Discharge Summary Admission Date: Aug 15, 2017 at 21:10 Discharge Date: Aug 20, 2017 Discharge Disposition: Home with services Principal Diagnosis: Acute renal failure Problems/Secondary Diagnoses: Atrial fibrillation Medication Reconciliation New Medications: Tramadol (Ultram) 50 Mg Tab 50 MG PO Q8H PRN for Pain, #20 TAB Diltiazem HCl (Diltiazem HCl ER) 180 Mg Caper 180 MG PO QAM, #30 TAB Tamsulosin HCl (Tamsulosin HCl) 0.4 Mg Cap 0.4 MG PO HS, #30 CAP 2 Refills Warfarin Sod (Coumadin) 5 Mg Tab 5 MG PO DAILY@16, #30 TAB Continued Medications: Cholecalciferol (Vitamin D) 5,000 Unit Tab PO DAILY Ferrous Sulfate (Iron (Ferrous Sulfate)) 50 Mg Tab PO DAILY Glucosamine-Chondroitin (Osteo Bi-Flex Regular Str) 1 Tab Tab PO DAILY for ARTRITIS Discontinued Medications: Ibuprofen (Advil) 200 Mg Tab 200 MG PO PRN for Pain, TAB Discharge Exam Patient admits that he feels a little better today. He describes some improvement in appetite and attempts to keep himself hydrated. He ambulated with PT this AM, and states he felt ok doing so. He otherwise denies fevers/ chills, headaches, CP, palpitations, dyspnea, abdominal pain, lower extremity swelling or rashes. His Nieto is in situ and he is stooling without issue. ROS is unremarkable except as noted above. Physical Exam General Appearance: WD/WN, no apparent distress Eyes: normal inspection ENT: hearing grossly normal, pharynx normal Respiratory/Chest: lungs clear, normal breath sounds, no respiratory distress, no accessory muscle use Cardiovascular: no murmur, + irregularly irregular Abdomen: normal bowel sounds, non tender, soft Extremities: normal inspection, no pedal edema, no calf tenderness Neurologic/Psychiatric: alert, normal mood/affect, oriented x 3, no motor/ sensory deficits (hip flexors now 5/5) Skin: normal color, warm/dry, no rash Hospital Course Patient is an 82 year old male with a past medical history of B12 deficiency, GI bleed 2/2 diverticulosis, and Arthritis that presented from [facility] with Acute Renal Failure Acute Renal Failure - presented with Cr 7 and CK - 6893, unsure of baseline - both normalizing, Cr 4.0 today. Likely multifactorial: prerenal - dehydration, intrarenal - ATN 2/2 mild rhabdomyolysis from inability to get up after fall, post-renal - BPH vs. ?prostate cancer vs. prostatitis. Random Urine Na 45, Cr 80.1 --> FENa 3%. Nephrology consulted, recs appreciated. Renal US: 4.8cm exophytic cyst involving the inferior pole of the left kidney. Otherwise unremarkable without hydronephrosis or renal calculi. Initial UA contaminated. Repeat UA clean catch from Nieto not overtly convincing for UTI. - Discharged on Flomax, encouraged PO fluid intake, and advised against NSAID use. - BMP in 3 days, and again 1-2 days prior to nephrology follow up in 2 weeks. New onset atrial fibrillation - patient asymptomatic. TSH WNL. Attempts for rate control with metoprolol caused hypotension. Improved with diltiazem drip. Echo shows normal LV size without hypertrophy, EF 55-60%. No definite regional wall motion abnormalities. Type 1 diastolic dysfunction. Mildly dilated RV with normal systolic function. Minimally dilated ascending aorta. Sclerotic aortic valve without significant stenosis. Trace aortic regurgitation. Mildly elevated right ventricular systolic pressure (45-50mmHg) - Discharged on diltiazem ER 180mg and warfarin 5mg daily. INR 1.6 today - INR check in 3 days, and follow up with PCP in 1 week for evaluation of warfarin dose. Once kidney function improves, patient may be candidate for NOAC. Metabolic acidosis - likely secondary to uremia from renal failure. Venous pH - 7.21, Anion gap closed now. acidosis resolved prior to discharge. BPH - history of decreasing urinary stream and difficulty placing Nieto. PSA elevated at 16.7 - Continue Flomax and discuss previous PSA levels and need for urology referral Arthritis - Advised against NSAID use - Recommend warm compress and Tylenol recommended for pain and short supply of tramadol provided for breakthrough pain. DVT - SCDs - IV heparin with bridge to warfarin Code Status - Full Resuscitation Resident Physician Supervision Note: I interviewed and examined the patient. Discussed with Dr. Mendez and agree with findings and plan as documented in the note. Any exceptions or clarifications are listed here: None Documented By: Hussein Qiu feeling better voiding on his own discussed anticoagulation - anticipate coumadin w close f/u of INR for now, once renal funciton recovers further likely then transition to NOAC vitals noted nad breathing unlabored multifactorial renal failure as above, improving -PO fluids -outpt labs and f/u new onset afib -rate controlled, anticoag w coumadin, anticipate transition to NOAC in near future stable for home Total Time Spent: Greater than 30 minutes This includes examination of the patient, discharge planning, medication reconciliation, and communication with other providers. Discharge Instructions Please refer to the electronic Patient Visit Report (Discharge Instructions) for additional information. Resident Tracking Resident Involvement: Resident Care Provided Care Provided: Adult Hospital Medicine
[2017-08-20] MEDS: WARFARIN SOD 5 MG TAB PO SCH (16:07)
== END 2017-08-20 16:38 | disposition home or self-care (01) | DRG 683 ==
LOC: C.2E 20:49 → OBSVTOIN 21:10 → ENRESERV 08-18 15:25 → C.MS2W 08-18 15:46
PROVIDERS: ADMIT Internal Medicine Sports Medicine; ATTEND Family Medicine
DX: N17.9 Acute kidney failure, unspecified (principal); M62.82 Rhabdomyolysis; I48.91 Unspecified atrial fibrillation; K59.00 Constipation, unspecified; E53.8 Deficiency of other specified B group vitamins; N40.1 Benign prostatic hyperplasia with lower urinary tract symptoms; R39.12 Poor urinary stream; E86.0 Dehydration; Z79.899 Other long term (current) drug therapy; Z91.81 History of falling